=== PATIENT | male | born 1955 | race Caucasian/White ===

== ENCOUNTER 2022-07-25 08:33 | Outpatient (CLI) | payer BC, SELFPAY ==
[2022-07-25 15:12] LABS: Chloride* 101 mmol/L (96-114); Potassium* 4.2 mmol/L (3.6-5.1); Sodium* 139 mmol/L (135-149)
[2022-07-25 15:14] LABS: Cholesterol* 222 mg/dL (90-199); Estimated Glomerular Filt Rate 84 ml/min
[2022-07-25 15:15] LABS: Blood Urea Nitrogen* 15 mg/dL (7-30); Carbon Dioxide* 32 mmol/L (20-32); Glucose* 90 mg/dL (60-115); Triglycerides* 197 mg/dL (40-149)
[2022-07-25 15:16] LABS: Calcium* 9.6 mg/dL (8.4-10.6); HDL Cholesterol* 37 mg/dL (>=40); LDL Cholesterol Calculated 146 mg/dL (<100)
[2022-07-25 15:42] LABS: PSA Screen* 5.67 ng/mL (0.10-4.00)
== END 2022-07-25 08:34 | disposition home or self-care (01) ==
LOC: LKVREF 08:34
PROVIDERS: PCP Family Medicine; Visit Provider Family Medicine
DX: Z00.00 Encounter for general adult medical examination without abnormal findings (principal); Z87.898 Personal history of other specified conditions; Z12.5 Encounter for screening for malignant neoplasm of prostate
CPT/HCPCS: 80048; 80061; 84153

== ENCOUNTER 2022-09-09 11:15 | Outpatient (RCR) | payer BC, SELFPAY | END 2023-01-16 23:59 | disposition home or self-care (01) | PROVIDERS: PCP Family Medicine; Visit Provider Family Medicine | DX: M25.561 Pain in right knee (principal); Z51.89 Encounter for other specified aftercare | CPT/HCPCS: 97110; 97161 ==

== ENCOUNTER 2023-08-19 08:26 | Outpatient (CLI) | payer MEDICARE, SELFPAY | END 2023-08-19 08:27 | disposition home or self-care (01) | LOC: NFLDREF 08-20 11:29 | PROVIDERS: PCP Family Medicine; Referring Provider Family Medicine; Visit Provider Family Medicine | DX: E78.5 Hyperlipidemia, unspecified (principal); R73.01 Impaired fasting glucose; Z12.5 Encounter for screening for malignant neoplasm of prostate; E29.1 Testicular hypofunction | CPT/HCPCS: 80053; 80061; 84403; G0103 ==

== ENCOUNTER 2023-11-18 08:00 | Outpatient (CLI) | payer MEDICARE, SELFPAY | END 2023-11-18 08:01 | disposition home or self-care (01) | LOC: NFLDREF 12-06 21:30 | PROVIDERS: PCP Family Medicine; Referring Provider Family Medicine; Visit Provider Family Medicine | DX: E78.00 Pure hypercholesterolemia, unspecified (principal); E78.5 Hyperlipidemia, unspecified; N40.0 Benign prostatic hyperplasia without lower urinary tract symptoms; R97.20 Elevated prostate specific antigen [PSA] | CPT/HCPCS: 80061; 80076; 84153; 84154 ==

== ENCOUNTER 2024-08-02 12:17 | Outpatient (CLI) | payer MEDICARE, SELFPAY | END 2024-08-02 12:18 | disposition home or self-care (01) | LOC: NFLDREF 08-04 00:50 | PROVIDERS: PCP Family Medicine; Referring Provider Family Medicine; Visit Provider Nurse Practitioner Family | DX: R30.9 Painful micturition, unspecified (principal); N30.90 Cystitis, unspecified without hematuria; R80.9 Proteinuria, unspecified | CPT/HCPCS: 87086 ==

== ENCOUNTER 2024-08-12 11:35 | Outpatient (CLI) | payer MEDICARE, SELFPAY | END 2024-08-12 11:36 | disposition home or self-care (01) | PROVIDERS: PCP Family Medicine; Visit Provider Family Medicine | DX: E78.5 Hyperlipidemia, unspecified (principal); K51.90 Ulcerative colitis, unspecified, without complications; L57.0 Actinic keratosis; E29.1 Testicular hypofunction; N39.0 Urinary tract infection, site not specified; R79.89 Other specified abnormal findings of blood chemistry; N40.0 Benign prostatic hyperplasia without lower urinary tract symptoms; R97.20 Elevated prostate specific antigen [PSA]; R73.01 Impaired fasting glucose; Z12.5 Encounter for screening for malignant neoplasm of prostate | CPT/HCPCS: 80048; 80061; 80076; 84270; 84402; 84403; 87086; G0103 ==

== ENCOUNTER 2024-09-14 10:25 | Outpatient (CLI) | payer MEDICARE, SELFPAY ==
--- NOTE | 2024-09-14 10:45 | CRLHL7_ITS ---
For Patients: As a result of the Century Cures Act, medical imaging exams and procedure reports are released immediately into your electronic medical record. You may view this report before your referring provider. If you have questions, please contact your health care provider. INDICATION: other intraabdominal and pelvic swelling COMPARISON: none TECHNIQUE: Vidal scale imaging was performed of the scrotum. In addition color Doppler and spectral Doppler analysis was performed of the testes. FINDINGS: The testes demonstrate normal arterial and venous blood flow on color Doppler and spectral Doppler analysis. The testes have uniform echogenicity with no evidence of a suspicious mass or area of inflammation. The right testis measures 3.5 x 1.4 x 2.4 cm in size and the left testis measures 4.6 x 1.9 x 2.9 cm. Incidental vessels are present within the right testicle right epididymal head cyst is present measuring 9 x 9 x 11 millimeters. Bilateral varicoceles noted. No hydrocele. IMPRESSION: Bilateral varicoceles and 1.1 cm right epididymal head cyst. Dictated by Eric Alvarado MD @ 09/14/2024 11:57:41 AM (Electronically Signed)
--- NOTE | 2024-09-14 10:45 | CRLHL7_ITS ---
For Patients: As a result of the Century Cures Act, medical imaging exams and procedure reports are released immediately into your electronic medical record. You may view this report before your referring provider. If you have questions, please contact your health care provider. Indication: other intraabdominal and pelvic swelling Technique: Grayscale and color Doppler ultrasound of the left inguinal soft tissues performed. Comparison: None Findings: No fluid collection or mass. No hernia. Left varicocele. Impression: No hernia. Dictated by Eric Alvarado MD @ 09/14/2024 11:58:49 AM (Electronically Signed)
== END 2024-09-14 10:26 | disposition home or self-care (01) ==
LOC: US 10:25
PROVIDERS: PCP Family Medicine; Visit Provider Surgery
DX: R19.09 Other intra-abdominal and pelvic swelling, mass and lump (principal); I86.1 Scrotal varices; L72.0 Epidermal cyst; R10.32 Left lower quadrant pain
CPT/HCPCS: 76857; 76870; 93976

== ENCOUNTER 2024-11-26 08:14 | Outpatient (CLI) | payer MEDICARE, SELFPAY | END 2024-11-26 08:15 | disposition home or self-care (01) | LOC: NFLDREF 12-01 00:24 | PROVIDERS: PCP Family Medicine; Referring Provider Family Medicine; Visit Provider Family Medicine | DX: K51.90 Ulcerative colitis, unspecified, without complications (principal); R97.20 Elevated prostate specific antigen [PSA]; Z90.49 Acquired absence of other specified parts of digestive tract; Z12.5 Encounter for screening for malignant neoplasm of prostate | CPT/HCPCS: 80076; 84153; 84154 ==

== ENCOUNTER 2024-12-31 11:20 | Emergency (ER) | payer MEDICARE, SELFPAY ==
--- OUTSIDE RECORDS SUMMARY | 2024-12-07 08:30 | XMS_ITS | Encounter Summary ---
Author Organization [facility] Address [address] [place] [address]. [place] [address] Care Team Providers Care Leather Production Machine Operator Name Role Phone Jasmyn, [facility] Primary Care Provider + Dave Ortiz MD Unavailable [phone] Reason for Visit * Diagnostic Imaging Ultrasound (Routine) - Pending Review Specialty Diagnoses / Procedures Referred By Carly de la garza Referred To Contact Radiology. Diagnoses Varicose veins of leg with pain, right Procedures US Venous Competency Right US Lower Extremity Venous Duplex Right Dave Ortiz MD [address] [place] [address] Phone: tel: fax: Referral ID Status Reason Start Date Expiration Date V isits Requested Visits Authorized [id number] Pending Review 10/29/2024 10/29/2025 1 1 Encounter Details Date Type Department Care Team (Latest Contact Info) Description 12/07/2024 8:30 AM CDT Ancillary Procedure [facility] [place] [address] [facility] [facility] [address] [place] [id number] Dave Ortiz MD [address] [place], [place] [id number] Varicose veins of leg with pain, right Social History Tobacco Use Types Packs/Day Years Used Date Smoking Tobacco: Never Smokeless Tobacco: Never Alcohol Use Standard Drinks/Week Comments No 0 (1 standard drink = 0.6 oz pur e alcohol) Food Insecurity Answer Date Recorded Within the past 12 months, d id you worry that your food would run out before you got money to buy more? No 08/03/2024 Within the past 12 months, d id the food you bought just not last and you didn t have money to get more? No 08/03/2024 Housing Stability Answer Date Recorded Do you have housing? ([place] is defined as stable permanent housing and does not include staying outside in a car, in a tent, in an abandoned building, in an overnight snf, or couch-surfing.) Yes 08/03/2024 Are you worried about losing your housing? No 08/03/2024 Financial Resource Strain Answer Date R ecorded Within the past 12 months, h ave you or your family members you live with been unable to get utilities (heat, electricity) when it was really needed? No 08/03/2024 Transportation Needs Answer Date Record ed Within the past 12 months, h as lack of transportation kept you from medical appointments, getting your medicines, non-medical meetings or appointments, work, or from getting things that you need? No 08/03/2024 Interpersonal Safety Answer Date Record ed Do you feel physically and e motionally safe where you currently live? Yes 08/04/2024 Within the past 12 months, h ave you been hit, slapped, kicked or otherwise physically hurt by someone? No 08/04/2024 Within the past 12 months, h ave you been humiliated or emotionally abused in other ways by your partner or ex-partner? No 08/04/2024 Sex and Gender Information Value Date Recorded Sex Assigned at Not on file Legal Sex Male 3:38 AM RHIT Gender Identity Not on file Sexual Orientation Not on file documented as of this encounter Plan of Treatment Upcoming Encounters Date Type Department Care Team (Late st Contact Info) Description 01/26/2025 1:00 PM CDT Office Visit [facility] Vein [facility] [address] [place] [phone] Dave Ortiz MD [address] [place] [address] Nurse, Sh Vein 01/28/2025 9:30 AM CDT Ancillary Procedure [facility] [place] [address] [facility] [place] [phone] 01/28/2025 10:00 AM CDT Allied Health/Nurse Visit [facility] [place] [address] [place] [id number] Nurse, Vein documented as of this encounter Procedures Procedure Name Priority Date/Time Associated Diagnosis Comments US VENOUS COMPETENCY RIGHT Routine 12/07/2024 8:45 AM CDT Varicose veins of leg with pain, right documented in this encounter Results * US Venous Competency Right (12/07/2024 8:45 AM CDT) Anatomical Region Laterality Modality Lower Extremity Ultrasound Narrative 12/07/2024 9:16 AM CDT Table formatting from the original result was not included. RIGHT Venous Insufficiency Ultrasound (Date: 12/07/24) RIGHT Lower Extremity Examined by: Lilly Luna RVT Indication: varicose veins with pain BP: 145/77 HR: 60 Technique: Supine and Reverse Trendelenburg Ultrasound of the Deep and Superficial Veins with Valsalva and Compression Augmentation Maneuvers. Duplex Imaging is performed utilizing chamberlain-scale, Two-dimensional images, color-flow imaging, Doppler waveform analysis, and Spectral doppler imaging done with provocative maneuvers. Incompetency Criteria: Deep vein reflux reported when greater than 1.0 sec flow reversal. Superficial vein reflux reported when greater than 0.5 sec flow reversal. Truck Driver Teamster vein reflux reported as greater than 0.5 sec flow reversal. Scan Position for Deep and Superficial Insufficiency Evaluation: Reverse Trendelenburg Right Leg Deep Veins Thrombus Phasic Reflux Time (sec) CFV - + 1.2 Femoral V Prox - + 2.1 Femoral V Mid - + 2.2 Femoral V Dist - + 1.6 Popliteal V - + - PTV'S - Peroneal V'S - Right Leg Superficial Veins AP (mm) Depth (mm) Thrombus Reflux Time (sec) SFJ 7.7 6.7 - - AASV @ SFJ 3.7 8.4 - - GSV Prox Thigh + GSV Mid Thigh + GSV Dist Thigh NV GSV Knee + GSV Prox Calf 2.7 1.9 - - GSV Mid Calf 3.6 3.1 - - GSV Dist Calf 2.7 4.0 - - AP (mm) Depth (mm) Thrombus Reflux Time (sec) GIACOMINI V Dist 2.0 6.2 - - SPJ NV SSV Prox Calf + SSV Mid Calf + SSV Dist Calf + Comments: The SSV is closed proximal calf to insertion site at distal calf. The GSV is closed 32.1 mm from the SFJ to the mid thigh and at the knee (absent distal thigh). The GSV gives rise to multiple incompetent varicose veins, the largest measures 5.8 mm off the proximal calf that courses medial with a reflux time of 2.6 seconds. Medial ankle (area of bleeding varicose veins measures 5.8 mm and varicose veins measure 4.1 mm at the knee). Perforators: There is an incompetent legal summer intern vein ( 6.7 mm) at medial ankle approximately 9 cm from medial malleolus that communicates with varicose veins measuring 5.8 mm that demonstrate 0.9 seconds of reflux that are GSV tributaries. The Left CFV is fully compressible, phasic and responds to augmentation with no evidence of DVT. Impression: RIGHT Deep Vein Findings: Patent deep venous system with no evidence of DVT. Incompetence of the right common femoral, proximal femoral, mid femoral and distal femoral veins. Superficial Vein Findings: RIGHT Great Saphenous Vein: Right great saphenous vein is patent and competent at the saphenofemoral junction. It is not well-visualized due to previous closure procedure. It is not visualized in the thigh and at the level of the knee. It is patent and competent in the calf. It gives rise to multiple incompetent varicose veins, the largest 1 measures 5.8 mm of the proximal calf that courses medially with a reflux time of 2600 ms. Medial ankle (area of bleeding varicose veins.) measures 5.8 mm and varicose veins measured 4.1 mm at the knee.. RIGHT Anterior Accessory Saphenous Vein: Patent Anterior Accessory Saphenous Vein without evidence of reflux. RIGHT Right Posterior Accessory Saphenous Vein: Not seen.. RIGHT Giacomini Vein: Patent Giacomini Vein without evidence of reflux. RIGHT Small Saphenous Vein: Right small saphenous vein is closed in the calf.. RIGHT Perforating and Accessory Veins: There is an incompetent legal summer intern vein (6.7 mm) at medial ankle approximately 9 cm from the medial malleolus that communicates with varicose veins measuring 5.8 mm that demonstrate 900 ms of reflux that are tributaries of the great saphenous vein. The left common femoral vein is fully compressible, phasic and response to augmentation with no sonographic evidence of deep venous thrombosis. Reference: Venous Doppler: (+) = Present (-) = Absent (D) = Decreased (NV) = Not Visualized Reflux: (-) Competent, (NV) = Not Visualized Interpretation criteria: Duration of Retrograde flow (seconds) Category Deep Veins Superficial Veins Truck Driver Teamster veins Competent < 1.0s < 0.5s < 0.5s Incompetent > 1.0s > 0.5s > 0.5s DEEPA CROW M.D., FACS, RPVI us Dave Ortiz MD [facility] [place] Final Res ult documented in this encounter Visit Diagnoses Diagnosis Varicose veins of leg with pain, right documented in this encounter Care Teams Leather Production Machine Operator Relationship Specialty Start Date End Date [facility], [facility] [id number] [place] [id number] PCP - General 05/22/24 Dave Ortiz MD [address] [address] Assigned Heart and Vascular Surgical Provider 09/19/24 documented as of this encounter
--- OUTSIDE RECORDS SUMMARY | 2024-12-07 09:30 | XMS_ITS | Encounter Summary ---
Author Organization [facility] Address [address] [place] [address]. [place] [address] Care Team Providers Care Optoelectronics Engineer Name Role Phone [facility], [facility] Primary Care Provider + Dave Ortiz MD Unavailable Reason for Visit * Reason Comments Surgical Followup Encounter Details Date Type Department Care Team (Late st Contact Info) Description 12/07/2024 9:30 AM CDT Office Visit [facility] [place] [address] [place] [id number] Dave Ortiz MD [address] [place], [place] [address] Surgical follow-up care (Primary Dx); Bleeding from varicose vein; Varicose veins of leg with pain, left Social History Tobacco Use Types Packs/Day Years [...] Answer Date Recorded Do you have housing? 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 Vannessa Harrison, Cashier Clerk - [phone]. Procedure Plan: 1. Left leg VNUS closure GSV 2. Right leg Sclerotherapy (medically necessary) Please call our office regarding the status of your insurance authorization if it has been more than 3 weeks and you have not heard from our social worker health services. Pre-Procedure Instructions: VNUS Closure You are having a VNUS Closure. One or more of your veins will be closed with radiofrequency heating. Insurance Precertification and/or referral authorization may be required by your insurance company. We will call your insurance company to verify benefits for the medically necessary part of your procedure. Your Current Medications and Allergies Are you on blood thinner medications? (Aspirin, Plavix, Coumadin, Eliquis, Xarelto) Please discuss this with your surgeon. Are you sensitive to latex or adhesives used for fake fingernails? Please let us know! Driving Escort and Final Inspector And Tester Please arrange to have a trusted adult (18 years old or older) drive you to and from the clinic. For your safety, we recommend you have a trusted adult to stay with you until the next morning. Your Health If you have a change in your health before the procedure, contact our office immediately. (For example: cold symptoms, cough, urinary tract infection, fever, flu symptoms.) A pre-procedure physical is not required. Note It is sometimes necessary to adjust the procedure schedule due to emergencies. We greatly appreciate your flexibility and understanding in this matter. ____ Check List: The Morning of Your Procedure ___1. Please do not apply anything on your leg(s) or shave the day of your procedure. ___2. You may take your normal medications the day of your procedure. ___3. It is recommended you eat a light breakfast or lunch on the day of your procedure. ___4. Wear comfortable loose-fitting clothing and wide-fitting shoes (i.e. tennis shoes, slip-ons). ___5. Please arrive at our clinic at the specified time given by the nurse. ___6. You will sign an affirmation of informed consent. ___7. Bring your pre-procedure sedation medication (lorazepam and clonidine) with you to the clinic. One hour before your procedure, you will be instructed to take these medications. The lorazepam (Ativan) lowers anxiety and sedates you; the clonidine makes the lorazepam more effective. Everyone's body processes these medications differently. Therefore, reactions to these medications vary. Some people stay awake and some people sleep through the whole procedure. You may not remember everything about the procedure or the day. You do not want to make any big decisions for the rest of the day. The Day of Your Procedure: VNUS Closure In the Exam Room A nurse will bring you back to an exam room with your family member or friend. This is when your informed consent will be signed, and you will take your pre- procedure medications. You will be asked to remove everything from the waist down, including undergarments. You will then put on a hospital gown or shorts and blue booties. Your surgeon will come in to answer any questions and may the appropriate leg(s) with a marker. You will be taken to the restroom to empty your bladder before going into the procedure room. In the Procedure Room You will be escorted to the procedure room. You will lie on a procedure table covered with a sheet or blanket. A nurse will put a blood pressure cuff on your arm and a pulse/oxygen monitor on a finger. Your vital signs will be monitored every 15 minutes. Your gown will be pulled up slightly and the groin exposed for a short period of time. The surgeon's hr assistant will clean your foot, leg, and groin with an antibacterial solution. We will get you covered up as quickly as possible! Sterile towels and blue drapes will be used to cover you and the table. You will be asked to keep your hands under the blue drapes during the procedure. The Procedure The surgeon will visualize your veins with an ultrasound machine. He or she will then numb your skin and access the vein. A catheter is passed up the vein and positioned with ultrasound guidance. Thetable will then be tipped head down. Once the catheter is in the correct position, medication will be injected to numb your leg. You will feel some needle sticks and may feel discomfort as the medication goes in. Once this is done, you should not experience significant discomfort. But if you do, please let us know and more numbing medication can be injected. As the catheter sends out heat, the vein closes off and the catheter is withdrawn. Post-Procedure Once the procedure is done, your leg will be washed with warm water and dried. You will have one ormore small bandages covering your incisions. Your compression hose will be put on or an FLOR wrap from your toes to groin. If the FLOR wrap feels too tight or binds, please elevate your leg and loosen it. You will be offered something to drink and a light snack. You will rest with your leg(s) elevated for approximately 30 minutes. Your friend or family member may join you. For your safety, you will be accompanied to your car by a staff member. Post-Procedure Instructions: VNUS Closure Post-Op Day Zero - The Day of Your Procedure: 1. Medication for Pain Control and Inflammation Control - The numbing medication injected during your procedure will last for several hours. The pre-procedure tablets may make you very sleepy and you might not remember everything from the procedure or from the day. This will usually wear off by the next day. - Ibuprofen: If tolerated, take ibuprofen (e.g., Advil) to reduce inflammation whether or not you have pain. For three days, take two tablets (200mg each) with every meal and at bedtime with a snack. If you are not able to take Ibuprofen, Tylenol is another option. - You may resume taking any medications you were taking before your procedure. 2. Activity You may be up as tolerated when the sedation wears off. Elevate if possible when not walking. 3. Bandages - You will have one or more small bandages covering the incision site(s) where we accessed the vein(s). Keep your bandages on and dry for 48 hours. Compression hose should be worn continuously over the bandages for the first 24 hours. 4. Incisions - Bleeding: You may see some incision sites that are oozing through the bandages. This is not unusual and can be managed with Rest, Ice, Compression and Elevation (TYLER). Apply ice and firm pressure directly to the site that is bleeding and rest with your leg(s) elevated above your heart for 20-30 minutes. Post-Op Day One: 1. Medication - Ibuprofen: Continue the same as the Day of Your Procedure. 2. Activity - Walk as tolerated. Resume your normal daily walking activities. If it hurts, stop. We encourage you to walk. Elevate if possible when not walking. 3. Bandages and Compression - After 24 hours, you may remove your compression hose to take a shower. Please keep your bandage(s) on and intact. You may want to cover your bandage(s) to ensure it remains dry during your shower. Reapply your compression hose after your shower and wear during waking hours only. 4. Driving - You may resume driving when you can do so safely. Post-Op Day Two: 1. Medication - Ibuprofen: Continue the same as the Day of Your Procedure. 2. Activity - Walk as tolerated. Elevate if possible when not walking. 3. Bandages and Compression - You may remove your bandage after 48 hours. Continue wearing your compression hose during waking hours only for a total of seven days following your procedure. 4. Incisions - Your leg(s) may be bruised at or near incision site(s) and possibly have numb spots. This is normal. 5. Call Us If: - You see any areas on your leg that are red and angry in appearance. - You notice any drainage that is milky or cloudy in appearance or that has a foul odor. - You run a temperature of 100.5 or greater. Post-Op Day Three: You will have a follow up appointment 2-4 days post- procedure. At this appointment, you will have an ultrasound and we will check your incisions. The Two Weeks Following Your Procedure 1. Skin Care - Do not use any lotions, creams, or powders on your incision(s) for 14 days or until the incisionshave healed. - Do not soak in a bathtub, hot tub or go swimming for 14 days or until your incisions have healed. 2. Medications - You may use ibuprofen or acetaminophen (e.g., Tylenol) as needed for pain or discomfort. 3. Activity - Do not lift over 25 pounds. After about two weeks you may resume exercise such as aerobics, running, tennis or weightlifting. Use your common sense and ease back into your exercise routine slowly. - You may feel a cord-like tightness along the inside of your leg. Gentle stretching can be helpful. 4. Compression Hose - Your doctor may instruct you to wear compression for longer than seven days; please follow your doctor's instructions. As a comfort measure, you may choose to wear compression for longer than required. 5. Travel - Do not fly in an airplane for 14 days after your procedure. If you have a long car trip planned within two to three weeks following your procedure, stop and walk for a few minutes every two hours. Periodic ankle pumps during the ride may be helpful. Six Week Appointment - At your six-week appointment, you will see your surgeon for an exam and evaluation. This office visit will be scheduled when you return for post-op day three return appointment. Return to Work 1. If you work outside the home, you may return to work in a few days depending on the extent of your procedure, how you tolerate it, and the type of work you perform. 2. Paperwork: If your employer requires paperwork or you would like a letter written to your employer, please let us know. We will complete disability type forms at no charge. Please allow five business days for forms to be completed. Sclerotherapy: Pre-Treatment Instructions Recommended Sessions: ___1___ treatment sessions Time Required per Treatment Session - About 45 minutes Please come in 15 minutes before your scheduled appointment. 30 min. Sclerotherapy treatments last approximately 30 minutes. 5 min. A staff member will wipe your legs off with warm water and dry them with a wash cloth. Then you can put your compression hose on, get dressed and check out. 10 min. After your treatment, you will be asked to walk around for 10 minutes before you get in your car. Medications Five days before your appointment, discontinue aspirin (Bufferin, Anacin, etc.) and Ibuprofen (Motrin, Advil, Aleve, etc.) to reduce bruising. Resume these medications the day following the treatment. Leg Preparation Do not shave your legs or apply any oil, lotion or powder the night before or the day of your treatment. Clothing Shorts: Bring a pair of loose, comfortable shorts to wear during your treatment (or you can choose to wear ours). Shoes: Bring comfortable shoes to accommodate the compression hose after your treatment. Do not wear flip-flops or thong-style sandals unless you have open-toe compression hose. Photographs Photos will be taken before each treatment. This helps monitor your progress. Injections The physician will inject your veins with the sclerotherapy solution chosen to meet your specific needs. Compression Hose Please bring your compression hose if you have them. They may also be reserved for you at our clinic. Compression hose must be worn immediately after each sclerotherapy treatment. The hose must be compression level 20-30, and they must be worn for 24 hours straight after your treatment. If you havenever worn compression hose before, a staff member will teach you how to put them on. You cannot have a treatment without compression hose. They are critical to the success of your treatment! You may purchase your compression hose from us. We will measure you and have the hose available when you come for your treatment. Cancellation and Rescheduling If you need to cancel or reschedule your sclerotherapy treatment, please give our office at least 24 hour notice. Sclerotherapy: Basic Information What is sclerotherapy? Sclerotherapy is a treatment for ???spider?? veins. ???Spider?? veins are small veins just under your skin that can look red, blue or purple. Most ???spider?? veins are only a cosmetic problem. ???Spider?? veins are not useful and treating them will not affect your circulation. How does sclerotherapy work? 1. Injections: A very small needle is used to inject a solution into the ???spider?? veins. The solution irritates the cells that line the vein grover. This causes the veins to collapse. The vein grover to stick together and they can no longer carry blood. Different solutions are used based on the size of the veins. 2. Compression: The spider veins are kept collapsed by wearing compression stockings. Your body will break down and absorb the treated veins. You wear the compression hose for 24 hours after the treatment and then for 4 more days during your waking hours only. How does the body heal after sclerotherapy? The process is similar to how your body heals after a bad bruise. It takes 4-6 weeks or more for the healing to be complete. When the healing is complete, the vein is no longer visible. It may take more than one treatment. How do I get the best results? It is important to follow the post-sclerotherapy instructions. The best results require time and patience. The injection sites will continue to heal and fade for months after a treatment. Please discuss your expectations with your doctor to keep them realistic. Your doctor will do everything possible to meet or exceed your expectations. How many treatments are needed? After your initial exam, your doctor will give you an estimate of the number of treatments that maybe required. It depends upon the size, type, and quantity of your ???spider?? veins and on the doctor's assessment, your history and expectations. You may end up needing fewer or more treatments. How soon can I have another treatment? Additional treatments are scheduled every 4-6 weeks to allow time for the body to respond to the previous treatment. Common Side Effects: Itching The areas that were injected may itch. This is usually mild and lasts less than a day. Do not use lotions or creams on your legs until the injection sites have healed over. Pain It is common to have some tenderness at the injection sites. Injection of the solution can be uncomfortable, but is usually well tolerated by most patients. The tenderness is temporary, lasting 24 hours at most. Tylenol or Ibuprofen can be used, if needed, following the product directions. Bruising This may occur at the injections sites. Bruising may be minimized by avoiding Aspirin and Ibuprofenproducts for five days before each treatment session. Hyperpigmentation A light brown discoloration of the skin may develop along the veins in the areas injected. Approximately 20-30% of patients treated note the discoloration (which is bill checker and less obvious than the veins that are being treated). The hyperpigmentation usually fades in a couple of weeks, but may take several months to a year to totally resolve. There is a 1% chance of hyperpigmentation continuing after one year. Trapped blood A small amount of blood may become trapped and hardened in the veins. This may feel like a knot or cord and it may look dark blue or bruised. This is a common occurrence. You may need to return before your next treatment so this area can be drained to remove the trapped blood. This will reduce the hyperpigmentation that can occur. The chance of this occurring can be decreased with proper use of compression hose after your treatment. Matting Matting is the formation of new, fine ???spider?? veins in the area injected. It occurs in approximately 10% of patients injected. The exact reason for this is unknown. If untreated, the matting usually resolves in 3 to 12 months, but very rarely, it can be permanent. If the matting does not fade,it can be re-injected. Rare Side Effects: Ulceration at injection sites Very rarely, a small ulcer will occur at the site where a vein is injected. An ulcer can take 4 to 6 weeks to completely heal. A small scar may result. Allergic reactions There is a very rare incidence of an allergic reaction to the solution injected. You will be observed for such reaction and will be treated appropriately should it occur. Please inform us of any allergy history. Pulmonary embolus/Deep vein thrombosis This is a blood clot which moves to the lungs/a blood clot in the deep vein system. There is an extraordinarily low incidence of this complication. SCLEROTHERAPY AFTER CARE Immediately: After treatment, walk for 10-15 minutes before getting in your car. If your trip home is more than 1 hour, stop and walk around for 5-10 minutes. Avoid sitting or standing for extended periods. First 24 hours: Wear your compression continuously, even while in bed. After the 24 hours, you may shower if you want to. Put your hose back on, unless you are going to bed. You should NOT wear compression to bed after the first 24 hours. You may fly the next day, but wear your compression. For 5 days: Wear the compression hose for waking hours only. You may continue to wear them longer than 5 days if you prefer. For days 5-7: Walking is encouraged, as it promotes efficient circulation in your veins. You may doactivities that raise your heart rate, but do NOT run, jog, do high impact aerobics, or weight lifting. After 7 days, no activity restrictions. Shaving: Wait a few days to shave or apply lotion. Bathing: Do NOT take hot baths or sit in a hot tub for 7-10 days. For 1 year: Wear SPF 30 sunscreen on your legs when in the sun. This is very important! It helps prevent darkening of the skin at the injection sites. Medications: You may resume your usual medications, including aspirin or ibuprofen. Common Things to Expect Compression must be worn for the first 24 hours and then during the day for 5-7 days. If larger veins are treated with ultrasound-guided sclerotherapy, you will have redness, firmness, tenderness, and swelling. This firmness and tenderness may take 3-6 months to resolve. Ibuprofen andcompression hose will aid in this process. You will have bruising that can last up to 3 weeks. Most fading of the veins will occur between 3 and 6 weeks after treatment. You may notice brown discoloration (hyperpigmentation) at the treatment site. This should fade withtime, but will take 3 months to 1 year to fully heal. Some treated veins may look darker because of trapped blood within the vein. This trapped blood canbe removed at a minimum of 1 month following treatment. Larger veins are more likely to develop trapped blood. It is very important for you to use at least SPF 30 sunscreen in order to help prevent the discoloration of your skin. Migraines rarely occur following sclerotherapy, but are more likely in patients with a history of migraines. Treat as you would any other migraine. documented in this encounter Progress Notes * Vannessa Mulligan RN - 12/07/2024 9:30 AM CDT December 07, 2024 Vein Procedure Recommendation Spoke with patient and patient's in clinic. Dr. Ortiz has recommended patient to have the following vein procedure(s) same day: 1. Left leg VNUS closure GSV 2. Right leg Sclerotherapy (medically necessary) Patient Pre-op Questions: Preferred Pharmacy: [facility] in [place] on [address] Anticoagulant/ASA: No Artificial Joint or Heart Valve: No Open ulcer: No Sedation nausea: No Patient is recommended to wear Thigh High compression hose following his procedure. Discussed compression hose. Pt has a pair of thigh high compression hose from the clinic today. Handed patient written procedure instructions to review on his own (see After Visit Summary). Next steps: Insurance Submission Informed patient this process could take up to 14 business days, but once approved, the patient will be contacted by our social worker health services to schedule the above procedure. Gave patient our social worker health services's information. Informed patient to call our office regarding the status of their insurance authorization if it hasbeen more than 3 weeks and have not heard from our social worker health services. Gave patient our call back number if any further questions or concerns. Vannessa Ballard RN [facility] * Dave Ortiz MD - 12/07/2024 9:30 AM CDT Images from the original note were not included. Apollo Quinones is a 69-year-old gentleman who initially presented to me on 07/20/2024 with history of spontaneous hemorrhage from right medial ankle spider veins and bilateral lower extremity symptomatic varicosities. He is now 6 weeks status post RFA of his right GSV and SSV. At that procedure hisright GSV was extremely superficial from the level of his proximal thigh down to the knee. I removed that portion of the GSV using segmental stab phlebectomy technique. Unfortunately, his insurance carrier would not approve medically necessary sclerotherapy of hemorrhagic right medial ankle spider veins until he had undergone radiofrequency ablation of his major right leg axial veins. He returns at this time for 6-week follow-up. He continues to do well but still has prominent spider veins at his right medial malleolus with several areas of thin overlying skin potentially placing him at risk for future recurrent hemorrhage. Additionally, he still needs to have radiofrequency ablation of hisleft greater saphenous vein which is also a rather superficial structure. Exam: Thin male alert and oriented x 3. His right lower extremity looks quite good with hyperpigmented but well-healed phlebectomy sites along the medial mid and distal right thigh. Prominent spider veins along the right medial malleolus with a few areas of hyperpigmentation. IMPRESSION: 1. 6 weeks status post RFA of the right greater saphenous and right small saphenous veins clinically doing well from that standpoint. 2. Prominent right medial malleolar spider veins with prior history of spontaneous hemorrhage. He still has a few areas within overlying skin at risk for future hemorrhage. 3. 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 RECOMMENDATION: I have reviewed all the above with Paulo and his . I do believe he would benefit from medicallynecessary direct vision sclerotherapy of the right medial malleolar spider veins. This procedure could be performed in conjunction with radiofrequency ablation of the left greater saphenous vein. I have thoroughly discussed the specifics of the above-noted procedures including potential complications and the anticipated postprocedural course. They verbalized full understanding to the above and a desire to proceed. Hopefully we can now obtain insurance approval for medically necessary right medial malleolar spider veins given the prior history of hemorrhage. Fercho Ortiz MD documented in this encounter Plan of Treatment Upcoming Encounters Date Type Department Care Team (Late st Contact Info) Description 01/26/2025 1:00 PM CDT Office Visit [facility] [place] [address] [place] [address] Dave Ortiz MD [address] [place] [address] Nurse, Kyra Vein 01/28/2025 9:30 AM CDT Ancillary Procedure [facility] [place] [address] [facility] [address] [place] [phone] 01/28/2025 10:00 AM CDT Allied Health/Nurse Visit [facility]in [facility] [address] [facility], [address] [place] [phone] NurseKyra Vein documented as of this encounter Visit Diagnoses Diagnosis Surgical follow-up care- Primary Follow-up examination, following unspecified surgery Bleeding from varicose vein Varicose veins of lower extremities with other complications Varicose veins of leg with pain, left documented in this encounter Care Teams Optoelectronics Engineer Relationship Specialty Start Date End Date [facility], [facility] [address] [place] [address] PCP - General 05/22/24 Dave Ortiz MD [address] [place] [address] Assigned Heart and Vascular Surgical Provider 09/19/24 documented as of this encounter
--- OUTSIDE RECORDS SUMMARY | 2024-12-31 11:22 | XMS_ITS | Encounter Summary ---
Author Organization [place] Address [facility] [place] [address] Care Team Providers Care Truck Repair Supervisor Name Role Phone [facility], [facility] Primary Care Provider + Dave Ortiz MD Unavailable [phone] Encounter Details Date Type Department Care Team (Late st Contact Info) Description 12/21/2024 [facility] [place] [address] [place] [phone] Dave Ortiz MD [address] [place], [place] [id number] Social History Tobacco Use Types Packs/Day Years [...] Answer Date Recorded Do you have housing? 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 Gender Identity Not on file Sexual Orientation Not on file documented as of this encounter Plan of Treatment Upcoming Encounters Date Type Department Care Team (Late st Contact Info) Description 01/26/2025 1:00 PM CDT Office Visit [facility] Vein [place] [address] [place] [address] [place] [phone] Dave Ortiz MD [address] [place] [address] [place] [address] NurseKyra Vein 01/28/2025 9:30 AM CDT Ancillary Procedure [facility] [address] [facility] [place] [phone] 01/28/2025 10:00 AM CDT Allied Health/Nurse Visit [facility] [place] [address] [place] [address] [place] [phone] NurseKyra Vein documented as of this encounter Visit Diagnoses Diagnosis Varicose veins of bilateral lower extremities with other complications- Primary documented in this encounter Care Teams Truck Repair Supervisor Relationship Specialty Start Date End Date [facility], [facility] [address] [place] [phone] PCP - General 05/22/24 Dave Ortiz MD [address] [address] Assigned Heart and Vascular Surgical Provider 09/19/24 documented as of this encounter
--- OUTSIDE RECORDS SUMMARY | 2024-12-31 11:22 | XMS_ITS | Encounter Summary ---
Author Organization [place] Address [facility] 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 Gender Identity Not on file Sexual Orientation Not on file documented as of this encounter Plan of Treatment Upcoming Encounters Date Type Department Care Team (Late st Contact Info) Description 01/26/2025 1:00 PM CDT Office Visit [facility] Vein [place] [address] [place], [place] [address] [place] [phone] Dave Ortiz MD [address] [place] [address] [place] [address] Nurse, Vein 01/28/2025 9:30 AM CDT Ancillary Procedure [facility] [place] [address] [place] [phone] 01/28/2025 10:00 AM CDT Allied Health/Nurse Visit [facility] Vein [place] [address] [place] [phone] Nurse, Vein documented as of this encounter Visit Diagnoses Not on filedocumented in this encounter Care Teams Foam Machine Operator Relationship Specialty Start Date End Date [facility], [facility] [address] [place] [phone] PCP - General 05/22/24 Dave Otriz MD [address] [facility] [address] [place] [address] Assigned Heart and Vascular Surgical Provider 09/19/24 documented as of this encounter
--- OUTSIDE RECORDS SUMMARY | 2024-12-31 11:22 | XMS_ITS | Encounter Summary ---
Author Organization [place] Address [address] [place] [address]. [place] [address] Care Team Providers Care Shake Cutter Name Role Phone Clinic, [facility] Primary Care Provider + Dave Ortiz MD Unavailable [phone] Reason for Referral * Diagnostic Imaging Ultrasound (Routine) - Pending Review Specialty Diagnoses / Procedures Referred By Carly de la garza Referred To Contact Radiology. Diagnoses Varicose veins of bilateral lower extremities with other complications Procedures US Lower Extremity Venous Duplex Left Dave Ortiz MD [address] [place] [address] Phone: tel: fax: Referral ID Status Reason Start Date Expiration Date V isits Requested Visits Authorized [id number] Pending Review 12/10/2024 12/10/2025 1 1 Encounter Details Date Type Department Care Team (Late st Contact Info) Description 12/10/2024 Orders Only [facility] [place] [address] [place], [place] [phone] Dave Ortiz MD [address] [place] [address] Varicose veins of bilateral lower extremities with other complications (Primary Dx) Social History Tobacco Use Types Packs/Day Years [...] in an abandoned building, in an overnight senior care, or couch-surfing.) Yes 08/03/2024 Are you worried [...] on file 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 Gender Identity Not on file Sexual Orientation Not on file documented as of this encounter Plan of Treatment Upcoming Encounters Date Type Department Care Team (Late st Contact Info) Description 01/26/2025 1:00 PM CDT Office Visit [facility] [place] [address] [place] [phone] Dave Ortiz MD [address] [place] [address] Nurse, Kyra Vein 01/28/2025 9:30 AM CDT Ancillary Procedure [facility] Vein [facility] [address] [place] [address] [address] [place] [phone] 01/28/2025 10:00 AM CDT Allied Health/Nurse Visit [facility] Vein [facility] [address] [place] [address] [address] [place] [phone] Nurse, Vein Scheduled Orders Name Type Priority Associated Diagnoses Orde r Schedule US Lower Extremity Venous Duplex Left Imaging Routine Varicose veins of bilateral lower extremities with other complications Expected: 12/10/2024 (Approximate), Expires: 12/10/2025 documented as of this encounter Visit Diagnoses Diagnosis Varicose veins of bilateral lower extremities with other complications- Primary documented in this encounter Care Teams Shake Cutter Relationship Specialty Start Date End Date [facility], [address] [address] PCP - General 05/22/24 Dave Ortiz MD [address] [place] [address] [place] [address] Assigned Heart and Vascular Surgical Provider 09/19/24 documented as of this encounter
--- OUTSIDE RECORDS SUMMARY | 2024-12-31 11:22 | XMS_ITS | Encounter Summary ---
Author Organization [place] Address [facility] [address] Care Team Providers Care Sales Recruitment Specialist Name Role Phone [facility], [facility] Primary Care Provider + Dave Ortiz MD Unavailable [phone] Reason for Visit * Reason Onset Date Comments Preop call 12/21/2024 Encounter Details Date Type Department Care Team (Late st Contact Info) Description 12/21/2024 Telephone [facility] [address] [place] [phone] Dave Ortiz MD [address] [place], [place] [address] Preop call Social History Tobacco Use Types Packs/Day Years [...] in an abandoned building, in an overnight detention, or couch-surfing.) Yes 08/03/2024 Are you worried [...] on file 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 12/21/2024 Vein Clinic Preoperative Nurse Call Procedure: Left leg VNUS closure GSV(med nec), Right leg sclero(med nec) 06/30 session exp. 06/29/25 Date: 12/29/24 Surgeon: Dr. Ortiz Time: 929 Check in time: 829 Called patient and left a detailed message. Informed patient: when to check in (0830) to sign consent, to bring their preop medications in their original bottle with them (2mg ativan, 0.1mg clonidine). Patient will take the medications after signing the consent to the procedure. Instructed patient to wear loose-fitting comfortable clothing, and bring their compression hose. Ensured patient has a construction driver/someone that will be responsible for them the rest of the day. Once procedure is completed, we will keep patient in recovery for 30-45 mins, and call construction driver with aftercare instructions. Informed patient, that if possible, they should sit in the backseat to elevate their leg on the ride home. Pt needs Thigh High compression hose for procedure. Status of the hose: patient has thigh high compression hose and was instructed to bring them on DOS. Patient understands if they have any of the following symptoms (fever, cough, shortness of breath, rash), they need to notify us immediately as they may need to cancel their procedure and reschedule for a later date. Gave patient our call back number if any further questions or concerns. Zuleima Chester RN [facility] Vein [facility] documented in this encounter Plan of Treatment Upcoming Encounters Date Type Department Care Team (Late st Contact Info) Description 01/26/2025 1:00 PM CDT Office Visit [facility] Vein [place] [address] [place] [address] [place] [phone] Dave Ortiz MD [address] [facility] [address] [place] [address] Nurse, Vein 01/28/2025 9:30 AM CDT Ancillary Procedure [facility] Vein [address] [facility] [place] [phone] 01/28/2025 10:00 AM CDT Allied Health/Nurse Visit [facility] Vein [address] [place] [address] [place] [phone] Nurse, Vein documented as of this encounter Visit Diagnoses Not on filedocumented in this encounter Care Teams Sales Recruitment Specialist Relationship Specialty Start Date End Date Clinic, [facility] [address] [place] [address] PCP - General 05/22/24 Dave Ortiz MD [address] [place] [address] Assigned Heart and Vascular Surgical Provider 09/19/24 documented as of this encounter
--- OUTSIDE RECORDS SUMMARY | 2024-12-31 11:23 | XMS_ITS | Encounter Summary ---
Author Organization [place] Address [address] [place] [address]. 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 Gender Identity Not on file Sexual Orientation Not on file documented as of this encounter Plan of Treatment Upcoming Encounters Date Type Department Care Team (Late st Contact Info) Description 01/26/2025 1:00 PM CDT Office Visit [facility] Vein [place] [address] [place] [address] [place] [phone] Dave Ortiz MD [address] [place] [address] Nurse, Vein 01/28/2025 9:30 AM CDT Ancillary Procedure [facility] Vein [address] [place] [phone] 01/28/2025 10:00 AM CDT Allied Health/Nurse Visit [facility] Vein [place] [address] [place] [address] [place] [phone] Nurse, Vein documented as of this encounter Visit Diagnoses Not on filedocumented in this encounter Care Teams Pediatric Medical Assistant Relationship Specialty Start Date End Date [facility], [facility] [place] [place] [address] [place] [address] PCP - General 05/22/24 Dave Ortiz MD [address] [place] [address] Assigned Heart and Vascular Surgical Provider 09/19/24 documented as of this encounter
--- OUTSIDE RECORDS SUMMARY | 2024-12-31 11:23 | XMS_ITS | Patient Health Record ---
Author Organization [facility] Address [address] [place] [address] Care Team Providers Care Materials Handling Equipment Operator Name Role Phone Robin Varela Primary Care Provider BENIGNO Ghosh [phone] Reason For Referral No Information Medications Medication SIG (Take, Route, Frequency, Duration) Notes Start Date End Date Status Omeprazole 40 MG Capsule Delayed Release 1 capsule Orally Once a day; Duration: 90 days 07/29/2014 Active Flonase 50 MCG/DOSE Inhaler 1 spray in each nostril Nasally Once a day Active Patanase 0.6 % Solution 2 sprays in each nostril Nasally Twice a day Active Social History Tobacco Use: Social History Observation Description Date Details (start date - stop date) Never Smoker NA - NA Social History Tobacco Use: Social Info Question Answer Notes Tobacco use/smoking Are you a nonsmoker Problems Problem Type SNOMED Code ICD Code Onset Dates Problem Status W/U Status Risk Notes Problem Deviated nasal septum (263691982) Deviated septum (470) Active confirmed Problem Chronic cough (99657065) Chronic cough (786.2) Active confirmed Problem Laryngopharyngeal reflux (979266688) Laryngopharyngeal reflux (LPR) (478.79) Active confirmed Problem Throat pain (262514475) Throat pain (784.1) Active confirmed Problem Gastroesophageal reflux disease (340119291) Reflux (530.81) Active confirmed Plan Of Treatment No Information Insurance Providers Payer Name Payer Address Payer Phone Subscriber Number Group Number Insured Name Patient Relationship to Insured Coverage Start Date Coverage End Date [id number] BLUE [employer]US [employer]( DO NOT USE) [address] [address] [place], [place] [id number] Apollo Quinones Self - patient is the insured Medical (General) History Medical History History ICD Code ulcerative colitis Surgical History Surgery Date(Month/Year) hernia 01/2012
--- OUTSIDE RECORDS SUMMARY | 2024-12-31 11:23 | XMS_ITS | Clinical Summary ---
Author Organization [facility] Address [address] [place] [address]. [place] [address] Care Team Providers Care Belting Cutter Name Role Phone [facility], [facility] Primary Care Provider + Dave Ortiz MD Unavailable [phone] Allergies No known active allergies Medications folic acid (FOLVITE) 400 MCG tablet Take 400 mcg by mouth daily Active multivitamin w/minerals (THERA-VIT-M) tablet Take 1 tablet by mouth daily. Active Vitamin D3 (CHOLECALCIFEROL) 25 mcg (1000 units) tablet Take 25 mcg by mouth daily. Active mesalamine (LIALDA) 1.[address] tablet Take 2,400 mg by mouth 2 times daily. Active rosuvastatin (CRESTOR) 5 MG tablet Take 5 mg by mouth every evening. Active tadalafil (CIALIS) 5 MG tablet Take 5 mg by mouth daily. Active omeprazole (PRILOSEC) [address] capsule Take 20 mg by mouth daily. 4 Active acetaminophen (TYLENOL) 325 MG tabletIndications :Acute cholecystitis Take 1 tablet (325 mg) by mouth every 6 hours as needed for mild pain. 5 Active senna-docusate (SENOKOT-S/JULISSA LACE) 8.6-50 MG tabletIndications :Acute cholecystitis Take 1 tablet by mouth 2 times daily as needed for constipation. 30 tablet 5 Active Additional Information Patient not taking.Reported on 12/07/2024 polyethylene glycol (MIRALAX) 17 GM/Dose powderIndications :Acute cholecystitis Take 17 g by mouth daily as needed for constipation. Active Additional Information Patient not taking.Reported on 12/07/2024 LORazepam (ATIVAN) 1 MG tabletIndications :Varicose veins of bilateral lower extremities with other complications Bring to clinic in original bottle one hour prior to procedure where you will be instructed to take 2 tablets (2mg). 2 tablet Active Additional Information Patient not taking.Reported on 12/07/2024 cloNIDine (CATAPRES) 0.1 MG tabletIndications :Varicose veins of bilateral lower extremities with other complications Bring to clinic in original bottle one hour prior to procedure where you will be instructed to take 1 tablet (0.1mg). 1 tablet Active Additional Information Patient not taking.Reported on 12/07/2024 LORazepam (ATIVAN) 1 MG tabletIndications :Varicose veins of bilateral lower extremities with other complications Bring to clinic in original bottle one hour prior to procedure where you will be instructed to take 2 tablet(s)(2mg). 2 tablet Active cloNIDine (CATAPRES) 0.1 MG tabletIndications :Varicose veins of bilateral lower extremities with other complications Bring to clinic in original bottle one hour prior to procedure where you will be instructed to take 1 tablet (0.1mg). 1 tablet Active Active Problems Problem Noted Date Diagnosed Date Choledocholithiasis 08/04/2024 Acute cholecystitis 08/03/2024 Acute UTI 08/03/2024 Acute gastrointestinal hemorrhage 05/03/2015 GI bleed 05/02/2015 Encounters Date Type Department Care Team Description 12/24/2024 Travel 12/21/2024 Refill [facility] [place] [id number] [place] [phone] Dave Ortiz MD 12/21/2024 Telephone [facility] [address] [place] [phone] Dave Ortiz MD Preop call 12/20/2024 MyC Medical Advice [facility] [address] [place] [phone] Diane Ken 12/10/2024 Orders Only [facility] [place] [address] [facility] [place] [phone] Dave Ortiz MD Varicose veins of bilateral lower extremities with other complications (Primary Dx) 12/07/2024 9:30 AM CDT Office Visit [facility] [place] [address] [facility] [place] [phone] Dave Ortiz MD Surgical follow-up care (Primary Dx); Bleeding from varicose vein; Varicose veins of leg with pain, left 12/07/2024 8:30 AM CDT Ancillary Procedure [facility] [address] [facility] [place] [phone] Dave Ortiz MD Varicose veins of leg with pain, right 12/07/2024 Travel 10/29/2024 1:30 PM CDT Allied Health/Nurse Visit [facility] [place] [address] [facility] [place] [phone] Dave Ortiz MD Nurse, Vein Surgical Followup; Nurse Visit 10/29/2024 1:00 PM CDT Ancillary Procedure [facility] [address] [facility] [place] [phone] Dave Ortiz MD Varicose veins of bilateral lower extremities with other complications 10/28/2024 Travel 10/26/2024 9:00 AM CDT Office Visit [facility] [place] [address] [facility] [place] [phone] Dave Ortiz MD Nurse, Vein Varicose veins of leg with pain, right (Primary Dx); Bleeding from varicose vein; Acute post-operative pain 10/26/2024 Travel 10/21/2024 Travel 10/19/2024 Refill [facility] [place] [address] [place] [phone] Dave Ortiz MD Refill Request 10/19/2024 Telephone [employer] [facility] [address] [place] [phone] Dave Ortiz MD Preop Call from Last 3 Months Immunizations Immunization Administration Dates Next Due Influenza Vaccine >6 months,eden, PF 05/06/2015 Social History Tobacco Use Types Packs/Day Years Used Date Smoking Tobacco: Never Smokeless Tobacco: Never Tobacco Cessation:Counseling Given: Not Answered Alcohol Use Standard Drinks/Week Comments No 0 [...] Date Recorded Do you have housing? 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 Gender Identity Not on file Sexual Orientation Not on file Last Filed Vital Signs Vital Sign Reading Time Taken Comments Blood Pressure 117/69 10/26/2024 10:49 AM CDT Pulse 61 10/26/2024 10:49 AM CDT Temperature 36.4 C (97.6 F) 08/05/2024 11:49 AM UNISHEAR OPERATOR Respiratory Rate 16 08/05/2024 11:49 AM UNISHEAR OPERATOR Oxygen Saturation 94% 10/26/2024 10:49 AM CDT Inhaled Oxygen Concentration - - Weight 79.5 kg (175 lb 4.8 oz) 08/03/2024 11:37 PM UNISHEAR OPERATOR Height 180.3 cm (5' 11) 08/03/2024 11:37 PM UNISHEAR OPERATOR Body Mass Index 24.45 08/03/2024 11:37 PM UNISHEAR OPERATOR Plan of Treatment Upcoming Encounters Date Type Department Care Team (Late st Contact Info) Description 01/26/2025 1:00 PM CDT Office Visit [facility] [place] [address] [place] [phone] Dave Ortiz MD [address] [place] [address] [place] [address] Nurse, Kyra Vein 01/28/2025 9:30 AM CDT Ancillary Procedure [facility] [address] [place] [phone] 01/28/2025 10:00 AM CDT Allied Health/Nurse Visit [facility] [place] [address] [place] [phone] Nurse, Vein Health Maintenance Due Date Last Done Comments ADVANCE CARE PLANNING 1955 ANNUAL REVIEW OF HM ORDERS [address] CT COLONOGRAPHY 1957 FLEX SIG 1957 LIPID 1957 sDNA (Cologuard) 1957 HEPATITIS C SCREENING 1975 ZOSTER VACCINE (1 of 2) 01/08/1976 FIT 05/02/2016 05/02/2015 RSV VACCINE (1 - Risk 60-74 years 1-dose series) 2017 FALL RISK ASSESSMENT 2022 MEDICARE ANNUAL WELLNESS VISIT 2022 PHQ-2 (once per calendar year) 2024 COVID-19 VACCINE (7 - Moderna risk season) 2024 03/15/2024, 04/11/2023, 03/18/2022, Additional history exists INFLUENZA VACCINE (#1) 2025 , 06/05/2023, 04/29/2022, Additional history exists DIABETES SCREENING 08/05/2027 08/05/2024, 0 08/04/2024, 08/03/2024, Additional history exists COLONOSCOPY 12/14/2031 12/13/2021, 10/27/2020 COLORECTAL CANCER SCREENING 12/14/2031 DTAP/TDAP/TD VACCINE (3 - Td or Tdap) 08/27/2032 08/27/2022, 05/08/2010 PNEUMOCOCCAL VACCINE 50+ YEARS Completed 02/05/2023 HPV VACCINE Aged Out No longer eligi ble based on patient's age to complete this topic MENINGITIS VACCINE Aged Out No longer eligible based on patient's age to complete this topic Medical Devices Explanted Type Area Passenger Train Braker Device Identifier Shelf Expiration Date Model / Serial / Lot Catheter- 025 Implanted:10/26 by Dave Ortiz MD (Quantity not on file) Explanted:10/26 by Dave Ortiz MD (Quantity not on file) Catheter [employer] [id number] 02/27/2026 / / [id number] Procedures Procedure Name Priority Date/Time Associated Diagnosis Comments US VENOUS COMPETENCY RIGHT Routine 12/07/2024 8:45 AM CDT Varicose veins of leg with pain, right US LOWER EXTREMITY VENOUS DUPLEX BILATERAL Routine 10/29/2024 12:58 PM CDT Varicose veins of bilateral lower extremities with other complications OR SC ENDOVENOUS ABLAT THERAPY INCOMP VEIN, INCLGUIDANC Routine 10/26/2024 10:35 AM CDT Varicose veins of leg with pain, right Bleeding from varicose vein OR SC ENDOVENOUS ABLAT THERAPY INCOMP VEIN, INCL GUIDANCN Routine 10/26/2024 10:35 AM CDT Varicose veins of leg with pain, right Bleeding from varicose vein COMPREHENSIVE METABOLIC PANEL Routine 08/05/2024 6:26 AM UNISHEAR OPERATOR OCCULT BLOOD STOOL STAT 05/02/2015 10 :07 AM UNISHEAR OPERATOR from Last 3 Months or Most Recently Relevant to Health Maintenance Results * US Venous Competency Right (12/07/2024 [...] when greater than 0.5 sec flow reversal. Leather Dresser vein reflux reported as greater than 0.5 [...] the knee). Perforators: There is an incompetent dispatcher maintenance service vein ( 6.7 mm) at medial ankle [...] and Accessory Veins: There is an incompetent dispatcher maintenance service vein (6.7 mm) at medial ankle approximately [...] flow (seconds) Category Deep Veins Superficial Veins Leather Dresser veins Competent < 1.0s < 0.5s < 0.5s Incompetent > 1.0s > 0.5s > 0.5s DEEPA CROW M.D., FACS, RPVI Dave Ortiz MD [facility] US ORDERABLES Final Res ult * US Lower Extremity Venous Duplex Bilateral (10/29/2024 12:58 PM CDT) Anatomical Region Laterality Modality Vascular, Thigh, Leg Ultrasound Narrative 10/31/2024 10:27 AM CDT Table formatting from the original result was not included. Right Venous Ultrasound Status Post VNUS Closure Date: Date: 10/29/24 Examined by: Prasanna Barrientos RVT Indication: 72 Hour Follow-up Saphenous Vein VNUS Closure Right CFV/SFJ Compression: Fully Compressible Right POP V./SPJ Compression: Fully Compressible Reference: (FC)-Fully Compressible (PC)-Partially Compressible (NC) Non-Compressible Location Right GSV Right SSV Proximal Thigh NC Mid Thigh NC Distal Thigh NV Knee NV NC Proximal Calf FC NC Mid Calf FC NC Distal Calf FC NC Location Right CFV Right Pop V Spontaneous + + Phasic + + Augmentation + + Patent + + Comments: The Right CFV and Popliteal Vein demonstrate phasic flow, compress, and respond to augmentation. No evidence of DVT at this time. The remainder of deep veins including femoral, posterior tibial and peroneal veins are widely patent and fully compressible with no evidence for DVT at this time. The GSV is closed 7.5 mm from the SFJ to the mid thigh with evidence of thrombus seen throughout. The SSV is closed from the posterior knee to the distal calf with evidence of thrombus seen throughout. The SPJ is absent. Impression: 1. Right great saphenous vein is closed 7.5 mm from the saphenofemoral junction to the mid thigh. It is not visualized at the level of the distal thigh and knee. There is thrombus throughout the noncompressible segments in the proximal and mid thigh. This is the expected sonographic finding from the procedure. 2. The right small saphenous vein is closed from the posterior knee to the distal calf with evidence of thrombus throughout. The saphenous popliteal junction is absent. This is the expected sonographic finding from the procedure. 3. No evidence for deep venous thrombosis in the right lower extremity. Reference: Compressibility: FC= Fully compressible, PC= Partially compressible, NC= Non-compressible, NV= Not Visualized Venous Doppler: (+) = Present (-) = Absent (D) = Decreased, (NV) = Not Visualized DEEPA CROW M.D., FACS, RPVI us Dave Ortiz MD [facility] US ORDERABLES Final Res ult * OR SC ENDOVENOUS ABLAT THERAPY INCOMP VEIN, INCL GUIDANCN, OR SC ENDOVENOUS ABLAT THERAPY INCOMP VEIN, INCLGUIDANC (10/26/2024 10:35 AM CDT) Narrative Dave Ortiz MD - 10/26/2024 10:35 AM CDT Dave Ortiz MD 10/26/2024 5:27 PM Annelise Closure Date/Time: 10/26/2024 10:35 AM Performed by: Dave Ortiz MD Authorized by: Dave Ortiz MD Time out: Immediately prior to the procedure a time out was called Preparation: Patient was prepped and draped in usual sterile fashion 1st Assist: Teri Todd CST/CHRISTIAN Paleobotanist: Zuleima Chester RN Procedure: VNUS Procedure side: Right One Vein Second and Subsequent Vein Vein Treated: GSV and SSV Patient tolerance: Patient tolerated the procedure well with no immediate complications Wrap/Hose: Wraps Dave Ortiz MD PROCEDURE/MINOR SURGICAL OR DERABLES Final Result * (ABNORMAL) Comprehensive metabolic panel (08/05/2024 6:26 AM [facility]) Sodium 135 135 - 145 mmol/L 08/05/2024 6:57 AM [facility] Potassium 4.2 3.4 - 5.3 mmol/L 08/05/2024 6:57 AM [facility] Carbon Dioxide (CO2) 23 22 - 29 mmol/L 08/05/2024 6:57 AM [facility] Anion Gap 14 7 - 15 mmol/L 08/05/2024 6:57 AM [facility] Urea Nitrogen 12.3 8.0 - 23.0 mg/dL 08/05/2024 6:57 AM [facility] Creatinine 0.97 0.67 - 1.17 mg/dL 08/05/2024 6:57 AM [facility] GFR Estimate 86 >60 mL/min/1.7 3m2 08/05/2024 6:57 AM [facility] Comment:eGFR calculated usmi 2020 CKD-EPI equation. Calcium 9.3 8.8 - 10.4 mg/dL 08/05/2024 6:57 AM [facility] Chloride 98 98 - 107 mmol/L 08/05/2024 6:57 AM [facility] Glucose 100(H) 70 - 99 mg/dL 08/05/2024 6:57 AM [facility] Alkaline Phosphatase 163(H) 40 - 150 U/L 08/05/2024 6:57 AM [facility] AST 245(H) 0 - 45 U/L 08/05/2024 6:57 AM [facility] ALT 311(H) 0 - 70 U/L 08/05/2024 6:57 AM [facility] Protein Total 6.7 6.4 - 8.3 g/dL 08/05/2024 6:57 AM [facility] Albumin 3.9 3.5 - 5.2 g/dL 08/05/2024 6:57 AM [facility] Bilirubin Total 0.6 <=1.2 mg/dL 08/05/2024 6:57 AM [facility] Blood STRUCTURE OF LEFT UPPER LIMB / Unknown Venipuncture / Unknown 08/05/2024 6:26 AM UNISHEAR OPERATOR 08/05/2024 6:37 AM UNISHEAR OPERATOR us Brittney Iraheta MD LAB - BLOOD ORDERABLES Final Result [facility] [address] (1st floor, no room number) [place] [address], [facility] * (ABNORMAL) Stool: occult blood (05/02/2015 10:07 AM UNISHEAR OPERATOR) Occult Blood Positive(A ) NEG [facility] Stool specimen (specimen) 05/02/2015 10:07 AM UNISHEAR OPERATOR 05/02/2015 10:12 AM UNISHEAR OPERATOR us Vannessa Pulliam MD LAB - STOOLS ORDERABLES Final Result Performing Organization Address City/[facility]/ZIP Co de Phone Number [facility] [address] [place], [place] [address] [phone] from Last 3 Months or Most Recently Relevant to Health Maintenance Insurance [facility] MEDICARE ADVANTAGE [facility] MEDICARE ADVANTAGE Advance Directives For more information, please contact: [phone] * Full Code (Latest Code Status on File) Date Activated Date Inactivated Comments 08/03/2024 4:54 PM 08/05/2024 3:38 PM All basic and advanced life-sustaining interventions are performed as appropriate Question Answer Comments Code status determined by: Discussion with patie nt/ legal decision maker * Full Code Date Activated Date Inactivated Comments 05/03/2015 2:52 PM 05/06/2015 3:02 PM * Full Code Date Activated Date Inactivated Comments 05/02/2015 2:49 PM 05/03/2015 2:52 PM Care Teams Belting Cutter Relationship Specialty Start Date End Date [facility] [address] [place] [phone] PCP - General 05/22/24 Dave Ortiz MD [address] [place] [address] [place] [address] Assigned Heart and Vascular Surgical Provider 09/19/24
--- OUTSIDE RECORDS SUMMARY | 2024-12-31 11:23 | XMS_ITS | Encounter Summary ---
Author Organization [place] Address [facility] [place] [address] Care Team Providers Care Junior Buyer Name Role Phone [facility], [facility] Primary Care Provider + Dave Ortiz MD Unavailable [phone] Reason for Visit * Reason Onset Date Comments Preop Call 10/19/2024 Encounter Details Date Type Department Care Team (Late st Contact Info) Description 10/19/[address] 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 Reviewed over all procedure information. Pt in agreement with plan and had no further questions. Beth Montes De Oca RN [facility] * Telephone Encounter - Vannessa Mulligan RN - 10/19/2024 9:25 AM CDT Images from the original note were not included. 10/19/2024 Vein Clinic Preoperative Nurse Call Procedure: Braydon. leg VNUS Closure GSV(med nec), Right leg VNUS closure SSV(med nec) Date: Friday10/26/24 Surgeon: Dr. Ortiz Time: 0900 Check in time: 0800 Called patient and left a detailed message. Informed patient: when to check in (0800) to sign consent, to bring their preop medications in their original bottle with them (2mg ativan, 0.1mg clonidine). Patient will take the medications after signing the consent to the procedure. Instructed patient to wear loose-fitting comfortable clothing, and bring their compression hose. Ensured patient has a services delivery driver/someone that will be responsible for them the rest of the day. Once procedure is completed, we will keep patient in recovery for 30-45 mins, and call services delivery driver with aftercare instructions. Informed patient, that if possible, they should sit in the backseat to elevate their leg on the ride home. Pt needs Thigh High compression hose for procedure. Status of the hose: patient has thigh high hoseand will bring them to the appointment. Patient understands if they have any of the following symptoms (fever, cough, shortness of breath, rash), they need to notify us immediately as they may need to cancel their procedure and reschedule for a later date. Gave patient our call back number if any further questions or concerns. Vannessa Mulligan RN [facility] documented in this encounter Plan of Treatment Upcoming Encounters Date Type Department Care Team (Late st Contact Info) Description 01/26/2025 1:00 PM CDT Office Visit [facility] [place] [address] [address] [phone] Dave Ortiz MD [address] [place] [address] NurseKyra Vein 01/28/2025 9:30 AM CDT Ancillary Procedure [facility] [address] [place] [phone] 01/28/2025 10:00 AM CDT Allied Health/Nurse Visit [facility] [place] [address] [address] [phone] NurseKyra Vein documented as of this encounter Visit Diagnoses Not on filedocumented in this encounter Care Teams Junior Buyer Relationship Specialty Start Date End Date [facility], [facility] [address] [place] [address] PCP - General 05/22/24 Dave Ortiz MD [address] [place] [address] Assigned Heart and Vascular Surgical Provider 09/19/24 documented as of this encounter
--- OUTSIDE RECORDS SUMMARY | 2024-12-31 11:23 | XMS_ITS | Continuity of Care Document ---
Author Organization [facility] Address [address] [place] [address] Care Team Providers Care Electroplater Automatic Name Role Phone YUNI PRAMOD Primary Care Provider Assessment Encounter Date Assessment Date Assessment LastModified by Organization Details LastModified Time 12/06/2024 12/06/2024 I had the pleasure meeting with the patient who is here for elevated PSA. Most recent value 8.9. He has no family history of prostate cancer. We discussed that PSA is a good but imperfect test. PSA stands for prostate specific antigen. This is not a specific marker of cancer but rather the prostate as a whole. There are a lot of things that can cause elevations in PSA (infection, inflammation, recent procedure, recent trauma to the perineum, recent sexual intercourse, etc.). Downward trends can be reassuring but variability in PSA is common as well. We discussed following trends in the PSA rather than absolute value when deciding if there is anything concerning. Over time, PSA tends to increase with age (approximately 3.2% per year or 0.04 ng/ml per year). Furthermore, we have age specific data regarding PSA values. The recommended reference range for serum PSA (95th percentile) for men aged 40 to 49 years is 0.0 to 2.5 ng/ml; for 50 to 59 years, 0.0 to 3.5 ng/ml; 60 to 69 years, 0.0 to 4.5 ng/ml; and 70 to 79 years, 0.0 to 6.5 ng/ml. At this point we discussed 3 options including recheck in 3 months, MRI of the prostate, and transrectal ultrasound-guide d systematic biopsy of the prostate. We discussed the risks, benefits, alternatives of these approaches. At this point, the patient would like to proceed with MRI given the possible ability to avoid unnecessary biopsy based on results. We discussed that MRls have a 85% sensitivity. Recent studies suggest that the 10-15% of men with negative MRls likely have low risk or clinically indolent prostate cancer. Regardless of the outcome, he would need a PSA recheck in 6 months. We will order the MRI and have a return visit to clinic to review the results. Patient voices understanding with the plan. [email or web address] Not available 12/14/2024 08:50:31 Plan of Treatment Reminders Order Date Submit Date Provider Last Modified By Organization Details Last Modified Time Details Appointments None record ed. Lab None record ed. Referral None record ed. Procedures None record ed. Surgeries None record ed. Imaging None record ed. Medication Orders None record ed. Patient TargetsNo targets recorded. Patient InstructionsNo instructions recorded. Reason for Referral None Reported. Results Created Date Observation Date Name Description Value Unit Range Abnormal Flag Note LastModifiedBy Organization Detail LastModifiedTime 12/23/19 25 12/21/2024 MRI, prost ate, w/wo contr ast EXAM: MR PELVIS PROSTA TE wwo CONTRA ST [facility]ATI [facility]: [facility] [place] DATE: 025 INDICA TION: Elevat ed prosta te specif ic antige n [PSA]. Prior benign prosta te biopsy in 2021. COMPAR ANDRIY: 2020 PSA: No recent PSA levels availa ble at the time of MRI interp retati on. TECHNI QUE: Examin ation was perfor med with high-r esolut ion T1 axial, T2 axial, T2 FSE sagitt al and T2 FSE pike l images obtain ed throug h the prosta te gland and semina l vesicl es. Diffus ion images were obtain ed in the axial plane. Contra st was inject ed with dynami c enhanc ed images of the prosta te gland in the axial plane. Images were analyz ed using a separa te workst ation with CAD and 3D post proces sing for prosta te volume contou ring and segmen tation . CONTRA ST: 7.[address] Discar ded: [address] FINDIN GS: The image qualit y is satisf actory . PROSTA TE: Volume 57 mL. PERIPH ERAL ZONE: Mild wedge shaped T2 and ADC hypoin tensit ies, likely sequel ae of prosta titis (PI-RA DS 2). No suspic ious lesion s. 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 TRANSI TIONAL ZONE: Nodula rity consis tent with benign prosta tic hyperp lasia (PI-RA DS 2). No suspic ious lesion s. LOCAL STAGIN G: Semina l Vesicl es: Unrema rkable . Extrac apsula r Extens ion: Not applic able. Neurov ascula r Bundle Invasi on: Not applic able. Other Organ Invasi on: Not applic able. BLADDE R: Unrema rkable . LYMPH NODES: No pelvic or retrop eriton eal lympha denopa thy. BONES: No aggres sive osseou s lesion s. Degene rative change s at L5-S1. IMPRES AIDEE: 1. No suspic ious lesion s in the prosta te gland. OVERAL L ASSESS MENT: PI-RAD S 2-Low (clini venkat signif icant cancer is unlike ly to be presen t). 2. Change s of BPH with prosta te volume of 57 mL. This report was electr onical ly interp reted by: DR. BAILEY ALFARO M.D. [email or web address] [facility] [address] [facility] [address], [place], [address], 12/23/2024 08:42:20 Result Notes None recorded. Problems Name Problem SNOMED Code Status Onset Date Resolution Date Notes Provider Name and Address Organization Details Recorded Time Prostate specific antigen above reference range [id number] Active 025 LUMA JESSICA MD [address] [facility] [address], [place], [address] , [facility] 08:50:35 Problem Notes None recorded. Procedures Surgical History Date Name Laterality Status Provider Name and Address Organization Details Recorded Time 08/04/19 25 cholecystectomy completed Senia [facility] 12/06/2024 11:52:36 07/09/19 22 Prostate Biopsy Procedure completed Caitlyn Romero MD [address] [facility],[address], [place], [address], [facility] 07/09/2021 12:15:54 07/09/19 22 URONAV completed Sheldon Caldwell [facility] 07/09/2021 10:54:30 07/09/19 22 Gentamicin Injection completed Karlie Reinoso [facility] 07/09/2021 10:49:06 05/29/20 21 Blood Draw/FRUIT PICKER MACHINE OPERATOR/PSA RESULTS completed Shayna Terry [facility] 05/29/2021 14:08:40 10/28/19 21 Diagnostic colonoscopy completed Not Available Health Note 05/27/2021 14:22:52 Hernia repair w/mesh completed Not Available Health Note 05/27/2021 14:22:52 Imaging Results None recorded. Procedure Notes None recorded. Medical Equipment None Reported. Allergies No known drug allergies Medications Name Sig Start Date Stop Date Status Note LastModified by Organization Details LastModified Time cyclobenzap rine 10 mg tablet TAKE ONE TABLET BY MOUTH THREE TIMES DAILY NEEDED 12/03 completed Not Available Not Available Not Available clonidine HCl 0.1 mg tablet Bring to clinic in original bottle one hour prior to procedure where you will be instructe d to take 1 tablet (0.1mg).* 12/06 completed Not Available Not Available Not Available prednisone 10 mg tablet take 4 tablets by mouth for 1 week, then 3 tablets for 1 week, then 2 tablets for 1 week, then 1.5 tablets for 1 week, then 1 tablet for 1 w 12/03 completed Not Available Not Available Not Available prednisone 20 mg tablet TAKE 1 TABLET BY MOUTH TWICE DAILY 12/03 completed Not Available Not Available Not Available fluorouraci l 5 % topical cream APPLY TOPICALLY TO AFFECTED AREA(S) ONCE WEEKLY 12/03 completed Not Available Not Available Not Available cephalexin 500 mg capsule TAKE 1 CAPSULE BY MOUTH TWICE DAILY FOR 7 DAYS* 12/03 completed Not Available Not Available Not Available omeprazole 20 mg capsule,del ayed release TAKE ONE CAPSULE BY MOUTH ONCE DAILY BEFORE A MEAL* active Not Available Not Available No t Available lorazepam 1 mg tablet Bring to clinic in original bottle one hour prior to procedure where you will be instructe d to take 2 tablets (2mg).* 12/06 completed Not Available Not Available Not Available levofloxaci n 500 mg tablet TAKE 1 TABLET BY MOUTH ONCE 12/03 completed Not Available Not Available Not Available gentamicin 40 mg/mL injection solution Take 160 mg by injection route. 12/03 completed Not Available Not Available Not Available rosuvastati n 5 mg tablet TAKE 1 TABLET BY MOUTH DAILY* active Not Available Not Available No t Available tadalafil 5 mg tablet TAKE 1 TABLET BY MOUTH DAILY* active Not Available Not Available No t Available sildenafil (pulmonary hypertensio n) 20 mg tablet TAKE 1-2 TABLETS BY MOUTH NEEDED* 12/03 completed Not Available Not Available Not Available mesalamine 1.2 GM tablet 4/day 12/03 completed Not Available Not Available Not Available mesalamine 1.2 gram tablet,fernando yed release TAKE FOUR TABLETS BY MOUTH DAILY* active Not Available Not Available No t Available Vitals Date Recorded Body height Body mass index (BMI) Body weight Provider Name and Address Organization Details Last Updated DateTime 12/06/2024 180.34 cm 23.7 kg/m2 47901.7 g Senia Boone [place] [facility] 12/06/2024 11:50:24 Social History Question Answer Notes LastModified by Organizat ion Details LastModified Time Tobacco Smoking Status Never Smoker Not Available Health Note 05/27/2021 14:22:53 Do You Have An Advance Directive? No [email or web address] Information not available 12/06/2024 What Is Your Level Of Caffeine Consumption? Moderate [email or web address] Information not available 05/27/2021 How Much Tobacco Do You Chew? None [email or web address] Information not available 05/27/2021 Recreational Drug Use No [email or web address] Information not available 05/27/2021 Do You Have A Medical Power Of Dental Hygiene Professor? No [email or web address] Information not available 12/06/2024 What Was The Date Of Your Most Recent Tobacco Screening? 12/06/2024 [email or web address] Information not available 12/06/2024 What Is Your Relationship Status? [email or web address] Information not available 05/27/2021 Has Tobacco Cessation Counseling Been Provided? No Information not available 12/06/2024 Sex: Male Functional Status Question Answer Note LastModified by Organizat ion Details LastModified Time Do you use any illicit or recreational drugs? No [email or web address] Information not available 12/06/2024 Do you or have you ever used any other forms of tobacco or nicotine? No [email or web address] Information not available 12/06/2024 What is your level of alcohol consumption? None [email or web address] Information not available 05/29/2021 Do you or have you ever used smokeless tobacco? Never used smokeless tobacco [email or web address] Information not available 05/27/2021 Do you or have you ever used e-cigarettes or vape? Never used electronic cigarettes [email or web address] Information not available 05/27/2021 Mental Status None recorded. Family History Relationship Description Onset Age of this Age Resolved Age Notes LastModified by Organization Details LastModified Time Father Family history of cancer of colon [email or web address] Not available 2020 14:22:51 Medical History Condition Response Other Y High Blood Pressure N Kidney Stones N Depression N Lung Disease N GERD/Acid Reflux Y Sexually Transmitted Infection N Cancer N High Cholesterol N Diabetes N Bleeding Disorder N Heart Disease N Immunizations Vaccine Type Date Status Note Provider Nam e and Address Organization Details Recorded Time influenza, unspecified formulation 1 completed Not Available Health Note 05/27/2021 14:22:56 SARS-COV-2 (COVID-19) vaccine, UNSPECIFIED 1 completed Not Available Health Note 05/27/2021 14:22:56 Past Encounters Encounter ID Performer Location Encounter Start Date Encounter Closed Date Diagnosis/Indication Diagnosis SNOMED-CT Code Diagnosis ICD10 Code Diagnosis Note [id number] LUMA JESSICA MD [facility] [address] [place] [address] 12/06/2024 11:46:50 12/15/2024 08:40:26 Prostate specific antigen above reference range 418569774 R97.20 Plan:1. MRI prostate2. Return to review results3. At minimum, six-month PSA recheck with Urology Health Concerns Section Related Observation LastModified by Organization Detai ls LastModified Time None Recorded Concern Status LastModified by Organization Details LastModified Time None Recorded Payers Encounter Date Sequence Insurance Name Policy Number Policy Krishnamurthy Covered Member ID Krishnamurthy Member ID Guarantor Name 12/06/2024 1 [facility]: (MEDICARE REPLACEMENT PPO) [id number] Paulo Quinones [id number] Paulo E Stacie Notes Date Note Type Note Provider Name and Address Organization Details Recorded Time 12/06/2024 text/html Patient is a santo y pleasant 69-year-old gentleman previously seen by Dr. Romero in 2019 for elevated PSA. He underwent a prostate biopsy at that time. Final pathology showed no evidence of prostate cancer. He had a follow-up with his primary care provider recently. PSA was obtained. This shows a value of 8.9 ng/mL. Refer to urology discuss next steps of care. No recent blood in the urine. No urinary tract infections. No obstructive irritative voiding symptoms. LUMA JESSICA MD [address] [place] [address],[address], [place], [address], [facility] 12/14/2024 08:50:50
--- OUTSIDE RECORDS SUMMARY | 2024-12-31 11:23 | XMS_ITS | Clinical Summary ---
Author Organization [facility] Address [address] [place] [address] Care Team Providers Care Warehouse Freight Handler Name Role Phone Monika Trevino Primary Care Provider Allergies No known active allergies Medications folic acid 800 mcg tablet Take 800 mcg by mouth once daily. Active omeprazole (PRILOSEC) 20 mg Delayed-Release capsule Take 1 Capsule by mouth once daily. Active mesalamine (LIALDA) 1.2 gram Delayed-Release tablet Take 2 tablets by mouth twice daily 11/28/2020 Active sildenafiL, pulm.hypertensi on, (REVATIO) 20 mg tablet TAKE 2-5 TABLETS BY MOUTH 30 MINUTES PRIOR TO SEXUAL ACTIVITY. NO MORE THAN 5 TABLETS PER DAY 07/21/2020 Active cholecalciferol (Vitamin D) 1,000 unit capsule Take 1 Capsule (1,000 units) by mouth once daily. 0 12/08/2020 Active Active Problems Problem Noted Date Diagnosed Date Testosterone deficiency 12/06/2020 Male erectile disorder 12/06/2020 Elevated prostate specific antigen (PSA) 021 Atelectasis 12/06/2020 Immunizations Immunization Administration Dates Next Due COVID-19 vaccine (Moderna 100mcg/0.5mL) PF MDKeila 10/13/2020,09/15/2020 Influenza, IIV4 04/01/2020, 9,04/29/2018,2014 Tdap 05/08/2010 Social History Tobacco Use Types Packs/Day Years Used Date Smoking Tobacco: Never Smokeless Tobacco: Never Alcohol Use Standard Drinks/Week Comments Not Asked 0 (1 standard drink = 0.6 oz pur e alcohol) PHQ-2 Answer Date Recorded PHQ-2 TOTAL SCORE 0 12/08/2020 Social Connections Answer Date Recorded Frequency of Communication with Friends and Fami ly Not on file 06/30/2021 Financial Resource Strain Answer Date R ecorded Difficulty of Paying Living Expenses Not on file 06/30/2021 Difficulty of Paying Living Expenses Not on file 06/30/2021 Sex and Gender Information Value Date Recorded Sex Assigned at Not on file 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 Gender Identity Not on file Sexual Orientation Not on file Obstetrics History Last Filed Vital Signs Vital Sign Reading Time Taken Comments Blood Pressure 120/64 12/08/2020 12:21 PM CDT Pulse 72 12/08/2020 12:21 PM CDT Temperature 35.2 C (95.4 F) 05/11/2010 1:59 PM FIBRE OPTIC CABLE SPLICER Respiratory Rate 16 05/11/2010 3:17 PM FIBRE OPTIC CABLE SPLICER Oxygen Saturation 99% 05/11/2010 3:17 PM FIBRE OPTIC CABLE SPLICER Inhaled Oxygen Concentration - - Weight 77.6 kg (171 lb) 12/08/2020 12:21 PM CDT Height 180.3 cm (5' 11) 12/08/2020 12:21 PM CDT Body Mass Index 23.85 12/08/2020 12:21 PM CDT Plan of Treatment Health Maintenance Due Date Last Done Comments Hepatitis C screening for age 18-79 1975 Pneumococcal series for age 50+ (1 of 1 - PCV) 2007 Zoster (shingles) series for age 50+ (1 of 2) 2007 Lipids for age 45-75 03/07/2009 03/07/2004 Tetanus booster 05/08/2020 05/08/2010 BMI (ht and wt on same day) for age 18+ 12/08/2021 12/08/2020 Depression screening for age 12+ 12/08/2021 12/08/2020 COVID-19 vaccine series ( season) 2024 10/13/2020, 09/15/2020 Influenza Vaccine (#1) 2025 , 04/21/2019, 04/29/2018, Additional history exists Colonoscopy through age 75 12/14/203112/13, 10/27/2020, 09/14/2019 RSV vaccine for adults or (1 - 1-dose 75+ series) 01/08/2032 Hepatitis B series for 19+ Aged Out N o longer eligible based on patient's age to complete this topic Medical Devices Implanted Type Area Oil Distributor Tender Device Identifier Shelf Expiration Date Model / Serial / Lot Sys Hernia Lg Ultrapro - [id number] Implanted:Qty: 1 on 05/11/[address] [facility] Left: Inguinal [employer] (SUTURE) 12/29/2011 [facility]# / / [id number] Procedures Procedure Name Priority Date/Time Associated Diagnosis Comments SCAN-COLONOSCOPY 12/13/2021 1:00 PM CDT LIPID PANEL Timed 03/07/2004 8:10 AM CDT from Last 3 Months or Most Recently Relevant to Health Maintenance Results * SCAN-COLONOSCOPY (12/13/2021 1:00 PM CDT) Narrative Procedure Note Betsey Handy MD - 12/13/2021 12:17 PM CDT [facility] [address] [place] [address], [address], [place] [address] Patient Name: Apollo Quinones Gender: Male Exam Date: 12/13/2021 Visit Number: [id number] Age: 66 Years Date of : 1955 Attending MD: Betsey Handy MD Medical Record#: [id number] Procedure: Colonoscopy Indications: Ulcerative colitis Referring MD: Referral Self Primary MD: Alin Chaparro MD Medications: Intra Procedure Medications: Patient received monitored anesthesia care. Complications: No immediate complications Procedure: An examination of the heart and lungs was performed and found to be withinacceptable limits. . The patient was therefore deemed a reasonablecandidate for endoscopy and sedation. The risks and benefits of the procedure were explained to the patient.After obtaining informed consent, the patient received monitoredanesthesia care and I passed the scope without difficulty via the rectum to the ileum. The appendiceal orificeand ic valve were identified. The scope was retroflexed during theexamination The quality of the prep was good (Miralax/Gatorade/2 tabletsBisacodyl/Magnesium Citrate). This was a complete examination throughout the entire colon. Findings: Polyp location: transverse colon. Quantity: 1. Size: 2 mm. Polyp shape:flat lesion. Maneuver: polypectomy was performed with a cold snare. Removal: complete. Retrieval: complete. Bleeding: none. Diverticulosis. Location: - sigmoid. Description: mild. Size:medium. Quantity: few. No inflammation present. Anal canal: small internal hemorrhoid(s) Remainder of the exam is normal. Comments: About 5 cm of the TI was visualized and it was normal. Impression: Ulcerative (chronic) pancolitis without complicationsEndoscopic Fernández Score= 0; Normal or inactive disease Preliminary Plan: The patient and their physician will receive a copy of the pathologyreport as well as pathology-based recommendations for future screening orsurveillance. Recommendation Comments: 1-2 years return for colonoscopy pending onbiopsy results. Pathology Results: A: COLON, CECUM/ASCENDING, BIOPSY: 1. Normal colonic mucosa 2. Negative for microscopic, active, and chronic colitis 3. Negative for dysplasia B: COLON, TRANSVERSE, BIOPSY: 1. Normal colonic mucosa 2. Negative for microscopic, active, and chronic colitis 3. Negative for dysplasia C: COLON, DESCENDING, BIOPSY: 1. Normal colonic mucosa 2. Negative for microscopic, active, and chronic colitis 3. Negative for dysplasia D: COLON, SIGMOID, BIOPSY: 1. Changes consistent with quiescent ulcerative colitis 2. Negative for dysplasia E: RECTUM, BIOPSY: 1. Changes consistent with quiescent ulcerative colitis 2. Negative for dysplasia 3. Hyperplastic polyps are also present F: COLON, TRANSVERSE, POLYP: 1. Hyperplastic polyp MICROSCOPIC A: Performed B: Performed C: Performed D: Performed E: Performed F: Performed Electronically signed by: Sanjana [place] [address] Final Plan: Repeat colonoscopy in 2 years. We will attempt to contact you at appropriate intervals via U.S. mail. Wemay not be able to find you or contact you at that time, therefore youshould know that the responsibility for following our recommendation restswith you. If you don't hear from us at the time your procedure is due,please contact our office to schedule an appointment. If your contactinformation should change, please contact our office so that we can updateyour record. Additional Comments: The biopsies of your colon look great. We can do repeat colonoscopy in 2years! Always a pleasure to see you. _Electronically signed by: Betsey Handy MD 12/13/2021 cc: Alin Chaparro MD us Betsey Handy MD OTHER Final Res ult * (ABNORMAL) LIPID PANEL (03/07/2004 8:10 AM CDT) CHOLESTEROL,TOTAL 168 110 - 199 mg/dL [facility] TRIGLYCERIDES 77 40 - 149 mg/dL [facility] HDL CHOLESTEROL 40(L) 41 - 75 mg/dL [facility] CHOL/HDL RATIO 4.[address] [facility] LDL CHOLESTEROL 113 60 - 130 mg/dL [facility] 03/07/2004 8:10 AM CDT 03/07/2004 2:01 AM CDT us Lb Frias MD CHEMISTRY Final Re sult [facility] SENDOUT [facility] [address] [address] [place] [address] from Last 3 Months or Most Recently Relevant to Health Maintenance Insurance [facility] Care Teams Warehouse Freight Handler Relationship Specialty Start Date End Date Monika Trevino PA PCP - General Physician Roof Tile Layer 12/06/20
--- OUTSIDE RECORDS SUMMARY | 2024-12-31 11:23 | XMS_ITS | Encounter Summary ---
Author Organization [place] Address [facility] [place] [address] Care Team Providers Care Ironing Machine Operator Name Role Phone [facility], [facility] Primary Care Provider + Dave Ortiz MD Unavailable [phone] Encounter Details Date Type Department Care Team (Late st Contact Info) Description 09/29/[address] 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 Gender Identity Not on file Sexual Orientation Not on file documented as of this encounter Plan of Treatment Upcoming Encounters Date Type Department Care Team (Late st Contact Info) Description 01/26/2025 1:00 PM CDT Office Visit [facility] [place] [address] [place], [place] [address] [place] [phone] Dave Ortiz MD [address] [place] [address] [place] [address] Nurse, Vein 01/28/2025 9:30 AM CDT Ancillary Procedure [facility] [place] [address] [place] [phone] 01/28/2025 10:00 AM CDT Allied Health/Nurse Visit [facility] [place] [address] [facility] [place] [phone] Nurse, Vein documented as of this encounter Visit Diagnoses Not on filedocumented in this encounter Care Teams Ironing Machine Operator Relationship Specialty Start Date End Date [facility], [facility] [address] [address] [phone] PCP - General 05/22/24 Dave Ortiz MD [address] [facility] [address] [place] [address] Assigned Heart and Vascular Surgical Provider 09/19/24 documented as of this encounter
--- OUTSIDE RECORDS SUMMARY | 2024-12-31 11:23 | XMS_ITS | Encounter Summary ---
Author Organization [facility] Address [address] [place] [address]. [place] [address] Care Team Providers Care Make Up Artist Name Role Phone Clinic, [facility] Primary Care Provider + Dave Ortiz MD Unavailable Encounter Details Date Type Department Care Team (Latest Contact Info) Description 12/07/2024 Travel Social History Tobacco Use Types Packs/Day [...] in an abandoned building, in an overnight fdc, or couch-surfing.) Yes 08/03/2024 Are you worried [...] on file Legal Sex Male 3:38 AM [employer] Gender Identity Not on file Sexual Orientation Not on file documented as of this encounter Plan of Treatment Upcoming Encounters Date Type Department Care Team (Late st Contact Info) Description 01/26/2025 1:00 PM CDT Office Visit [facility] Vein [place] [address] [place] [address] [place] [phone] Dave Ortiz MD [address] [place] [address] Nurse, Vein 01/28/2025 9:30 AM CDT Ancillary Procedure [facility] [address] [place] [phone] 01/28/2025 10:00 AM CDT Allied Health/Nurse Visit [facility] [place] [address] [place] [address] [place] [phone] Nurse, Vein documented as of this encounter Visit Diagnoses Not on filedocumented in this encounter Care Teams Make Up Artist Relationship Specialty Start Date End Date [facility], [facility] [address] [place] [address] PCP - General 05/22/24 Dave Ortiz MD [address] [place] [address] Assigned Heart and Vascular Surgical Provider 09/19/24 documented as of this encounter
--- OUTSIDE RECORDS SUMMARY | 2024-12-31 11:23 | XMS_ITS | Data Portability ---
Author Organization [facility], [facility] Address [address] [place] [address] Care Team Providers Care Machine Marker Name Role Phone PRAMOD MORRISSEY Primary Care Provider Assessment Encounter Date Assessment [...] Details Last Modified Time Details Appointments None recorded. Lab biopsy, prostate [address] [facility], [address] [facility], [place], [address], 2 11:22:10 PSA, total, serum or plasma 2020 [facility], [address] [facility], [place], [address], 15:33:38 Referral None recorded. Procedures None recorded. Surgeries None recorded. Imaging MRI, prostate, w/wo contrast - Please contact patient to schedule 2020 [place] [facility] [place], [address], [place], [address], 1 21:24:16 Medication Orders gentamicin 40 mg/mL injection solution 2021 022 [email or web address] [id number], [address], [place], [address], 5 11:50:38 levofloxaci n 500 mg tablet 2020 021 [id number], [address], [place], [address], 14:05:23 Patient TargetsNo targets recorded. Patient InstructionsNo instructions recorded. Reason for Referral None Reported. Results Created Date Observation Date Name Description Value Unit Range Abnormal Flag Note LastModifiedBy Organization Detail LastModifiedTime 05/29/20 21 05/29/2021 PSA, TOTAL PSA, total 9.89 NG/mL 0.00-4 .00 high Not Available [facility] [address], [place], [address], 05/29/2021 15:33:38 06/12/20 21 06/12/2021 MRI, prost ate, w/wo contr ast No observ ation record ed. [email or web address] [facility] [address], [place], [address], 07/01/2021 23:47:42 06/19/20 21 06/12/2021 MRI, prost ate, w/wo contr ast No observ ation record ed. [email or web address] Not Available 2020 14:36:59 07/25/19 22 07/09/2021 US, prost ate No observ ation record ed. [email or web address] Not Available 2021 12:35:08 12/23/19 25 12/21/2024 MRI, prost ate, w/wo [...] previo usly seen lesion in the left manager forms olater al periph eral zone at the [...] reted by: DR. BAILEY ALFARO M.D. [email or web address] [facility] [address] [facility] [address], [place], [address], 12/23/2024 08:42:20 Result Notes Documentation Provider Name and Address Organization Details Recorded Time Mri, Prostate, W/wo Contrast : EXAM: MR PELVIS PROSTATE wwo CONTRAST LOCATION: [facility] [place] DATE: 12/21/2024 INDICATION: Elevated prostate specific antigen [PSA]. Prior benign prostate biopsy in 2021. COMPARISON: 06/12/2021 PSA: No recent PSA levels available at the time of MRI interpretation. TECHNIQUE: Examination was performed with high-resolution T1 axial, T2 axial, T2 FSE sagittal and T2 FSE coronal images obtained through the prostate gland and seminal vesicles. Diffusion images were obtained in the axial plane. Contrast was injected with dynamic enhanced images of the prostate gland in the axial plane. Images were analyzed using a separate workstation with CAD and 3D post processing for prostate volume contouring and segmentation. CONTRAST: 7.5 ml Gadavist Discarded: 0 ml Gadavist FINDINGS: The image quality is satisfactory. PROSTATE: Volume 57 mL. PERIPHERAL ZONE: Mild wedge shaped T2 and ADC hypointensities, likely sequelae of prostatitis (PI-RADS 2). No suspicious lesions. The previously seen lesion in the left posterolateral peripheral zone at the mid gland/gland apex is less apparent today. TRANSITIONAL ZONE: Nodularity consistent with benign prostatic hyperplasia (PI-RADS 2). No suspicious lesions. LOCAL STAGING: Seminal Vesicles: Unremarkable. Extracapsular Extension: Not applicable. Neurovascular Bundle Invasion: Not applicable. Other Organ Invasion: Not applicable. BLADDER: Unremarkable. LYMPH NODES: No pelvic or retroperitoneal lymphadenopathy. BONES: No aggressive osseous lesions. Degenerative changes at L5-S1. IMPRESSION: 1. No suspicious lesions in the prostate gland. OVERALL ASSESSMENT: PI-RADS 2-Low (clinically significant cancer is unlikely to be present). 2. Changes of BPH with prostate volume of 57 mL. This report was electronically interpreted by: [facility] 12/23/2024 08:42:20 Problems Name Problem SNOMED Code Status Onset Date Resolution Date Notes Provider Name and Address Organization Details Recorded Time Prostate specific antigen above reference range 267981086 Active 025 LUMA JESSICA MD [address] [facility] [address] [place] [address], [phone] , [facility] 08:50:35 Problem Notes None recorded. Procedures Surgical History Date Name Laterality Status Provider Name and Address Organization Details Recorded Time 08/04/19 25 cholecystectomy completed Senia Boone [facility] 12/06/2024 11:52:36 07/09/19 22 Prostate Biopsy Procedure completed Caitlyn Romero MD [address] [facility],[address], [place], [address], [facility] 07/09/2021 12:15:54 07/09/19 22 URONAV completed Sheldon Caldwell [facility] 07/09/2021 10:54:30 07/09/19 22 Gentamicin Injection completed Karlie Reinoso [facility] 07/09/2021 10:49:06 05/29/20 21 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/PSA RESULTS completed Shayna Terry [facility] 05/29/2021 14:08:40 10/28/19 21 Diagnostic colonoscopy [...] t Available Vitals Date Recorded Body height Provider Name an d Address Organization Details Last Updated DateTime 07/09/2021 180.34 cm Sheldon Caldwell [facility] 10:54:34 Date Recorded Body height Heart rate Systolic And Diastolic Provider Name and Address Organization Details Last Updated DateTime 07/09/2021 180.34 cm 75 /min 134/86 mm[Hg] Karlie Reinoso [facility] 07/09/2021 10:55:00 Date Recorded Body height Body mass index (BMI) Body weight Provider Name and Address Organization Details Last Updated DateTime 12/06/2024 180.34 cm 23.7 kg/m2 22757.7 g Senia Boone [facility] 12/06/2024 11:50:24 Date Recorded Body weight Body height Body mass index (BMI) Provider Name and Address Organization Details Last Updated DateTime 05/29/2021 78685.90651 29531 g 180.34 cm 23 kg/m2 Not Available Health Note 05/29/2021 13:36:19 Social History Question Answer Notes LastModified by Organizat ion Details LastModified Time Tobacco Smoking Status Never Smoker Not Available Health Note 05/27/2021 14:22:53 Do You Have An Advance Directive? No [email or web address] Information not available 12/06/2024 What Is Your Level Of Caffeine Consumption? Moderate [email or web address] Information not available 05/27/2021 How Much Tobacco Do You Chew? None [email or web address] Information not available 05/27/2021 Recreational Drug Use No [email or web address] Information not available 05/27/2021 Do You Have A Medical Power Of Train Reservation Clerk? No [email or web address] Information not available 12/06/2024 What Was The Date Of Your Most Recent Tobacco Screening? 12/06/2024 [email or web address] Information not available 12/06/2024 What Is Your Relationship Status? [email or web address] Information not available 05/27/2021 Has Tobacco Cessation Counseling Been Provided? No [email or web address] Information not available 12/06/2024 Sex: Male Functional Status Question Answer Note LastModified by Organizat ion Details LastModified Time Do you use any illicit or recreational drugs? No Information not available 12/06/2024 Do you or have you ever used any other forms of tobacco or nicotine? No [email or web address] Information not available 12/06/2024 What is your [...] High Blood Pressure N Kidney Stones N Lung Disease N Depression N GERD/Acid Reflux Y Sexually Transmitted Infection [...] SNOMED-CT Code Diagnosis ICD10 Code Diagnosis Note [id number] MD Jone Wilcox [facility] [address] [place] [address],[address] [place] [phone] 05/29/2021 13:36:12 05/29/2021 14:09:15 Prostate specific antigen above reference range [id number] R97.20 will recheck psa. sudden rise from 2 to 10 -- more suspicous for inflammati onDRE - normalchec k MRI [id number] MD Jone Wilcox [address],[facility] e [address] [place] [phone] 07/09/2021 10:39:38 07/09/2021 12:22:37 Prostate specific antigen above reference range [id number] R97.20 will recheck psa. sudden rise from 2 to 10 -- more suspicous for inflammati onDRE - normalchec k MRI [id number] MD Jone Wilcox [address],[facility] e [address] [place] [phone] 07/09/2021 10:42:39 07/11/2021 11:41:50 Prostate specific antigen above reference range [id number] R97.20 will recheck psa. sudden rise from 2 to 10 -- more suspicous for inflammati onDRE - normalchec k MRI------- --------- 07/09/21 - uronav done w/o complicati ons.1 pi-rads 3 lesionwill call w results. [id number] LUMA JESSICA MD [facility] [address] [place] [phone] 12/06/2024 11:46:50 12/15/2024 08:40:26 Prostate specific antigen above reference range [id number] R97.20 Plan:1. MRI prostate2. Return to review results3. At minimum, six-month PSA recheck with Urology Health Concerns Section Related Observation LastModified by Organization Detai ls LastModified Time None Recorded Concern Status LastModified by Organization Details LastModified Time None Recorded Advance Directives Directive N: Payers Insurance Date Sequence Insurance Name Policy Number Policy Krishnamurthy Covered Member ID Krishnamurthy Member ID Guarantor Name 12/15/2024 1 [place] (MEDICARE [place]AC[place] PPO) [id number] Paulo Quinones [id number] Paulo Quinones 12/06/2024 1 [facility] [id number] Hilda Quinones [id number] Paulo Quinones Notes Date Note Type Note Provider Name and Address Organization Details Recorded Time 05/29/2021 text/html Chief complaint:Elevated Prostate Level (PSA) Elevated PSA:Diagnosed:1 Months ago patient went from 2 range to 10.9dad recently diagnosed w prostate cancer Shayna Terry [facility] 05/29/2021 14:08:59 07/09/2021 text/html patient here tod for uronav biopsy. Caitlyn Romero MD [address] [place] [address],[address], [place], [phone], [facility] 07/09/2021 12:16:08 12/06/2024 text/html Patient is a santo y [...] obstructive irritative voiding symptoms. LUMA JESSICA MD [address] [place] [address],[address], [place], [phone], [facility] 12/14/2024 08:50:50
[2024-12-31 11:28] VITALS: BP 136/87; PULSE 76; RESP 18; TEMP 36.4; O2SAT 96; BMI 24.4
--- NOTE | 2024-12-31 11:42 | CRLHL7_ITS ---
For Patients: As a result of the Century Cures Act, medical imaging exams and procedure reports are released immediately into your electronic medical record. You may view this report before your referring provider. If you have questions, please contact your health care provider. INDICATION: Diarrhea HX ulcerative colitis. TECHNIQUE: CT abdomen and pelvis acquired with 85 cc Isovue 370 IV contrast. COMPARISON: None. FINDINGS: Lower chest: Unremarkable. Liver: Unremarkable. Normal in size and attenuation. No suspicious masses. Gallbladder and bile ducts: Cholecystectomy. No biliary ductal dilatation. Pancreas: Unremarkable. No mass or inflammation. Spleen: Unremarkable. Normal in size. No masses. Adrenal glands: Unremarkable. No nodules. Kidneys: Unremarkable. No suspicious masses, stones, or hydronephrosis. GI tract: Numerous fluid-filled small bowel loops with associated wall thickening and mild scattered interloop edema. No evidence of a mechanical obstruction. Focal short-segment small bowel intussusception in the left hemiabdomen (2/60). Mild colonic diverticulosis. The appendix is not discretely visualized. Vasculature: Abdominal aorta is normal in caliber. Mesenteric arteries are patent. Lymph nodes: No lymphadenopathy. Peritoneum/Abdominal Wall: Unremarkable. No sign of mass or infiltration. No free air. Small volume free-fluid, likely reactive secondary to the small-bowel inflammation. Pelvis: Prostatomegaly. Bones: Multilevel degenerative changes in the lower lumbar spine. Gyut-hq-diyiwbrp thoracolumbar dextrocurvature. IMPRESSION: 1. Findings compatible with enteritis, which may be inflammatory or infectious in etiology. 2. Focal short-segment small bowel intussusception in the left hemiabdomen, which is typically a transient finding in adults. Please note that all CT scans at this facility use dose modulation, iterative reconstruction, and/or weight-based dosing when appropriate to reduce radiation dose to as low as reasonably achievable. Dictated by Jose Lora MD @ 12/31/2024 1:26:11 PM (Electronically Signed)
--- NOTE | 2024-12-31 11:44 | ED.GENADULT ---
HPI - General Adult General Date Seen: 12/31/24 Chief complaint: Diarrhea Stated complaint: Diarrhea Time Seen by Provider: 12/31/24 11:21 History of Present Illness HPI narrative: Patient is a 69-year-old here for evaluation of diarrhea which has been ongoing for about a week. He says symptoms started about 3 days after getting an MRI with contrast for evaluation of his prostate. He does have a longstanding history of ulcerative colitis which has been well controlled on medication. He has a history of diverticulosis but does not recall any specific episodes of diverticulitis. He is status post cholecystectomy in July this year but has not had problems since then. He notes watery diarrhea which he says started a week ago, seemed to improve over the course of about 5 days, but recurred today. He has had 5 or 6 episodes of watery diarrhea Ramonita today. He has not had any bloody stools. He has not had any focal or significant abdominal pain. Has had some nausea but no vomiting. No fevers. No travel or exposure to illness. His is not sick. No recent antibiotics. Related Data Home Medications ?Medication ?Instructions ?Recorded ?Confirmed mesalamine 1.2 gram tablet,delayed 4.8 g PO DAILY 07/12/24 12/31/24 release omeprazole 20 mg capsule,delayed 20 mg PO DAILY 08/12/24 12/31/24 release Previous Rx's ?Medication ?Instructions ?Recorded rosuvastatin 5 mg tablet 5 mg PO QDAY #90 tabs 08/27/24 tadalafil 5 mg tablet (Cialis) 5 mg PO QDAY #90 tabs 08/27/24 Allergies Allergy/AdvReac Type Severity Reaction Status Date / Time No Known Drug Allergies Allergy Verified 12/31/24 12:44 Review of Systems Status of ROS: Reports: 10 or more systems reviewed and unremarkable except as noted in History and below [facility] Medical History Duodenal ulcer ?K26.9 - Duodenal ulcer, unspecified as acute or chronic, without hemorrhage or perforation (ICD-10) 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 - Carcinoma in situ, unspecified (ICD-10) Melanoma in situ of face ?D03.30 - Melanoma in situ of unspecified part of face (ICD-10) Ulcerative colitis ?K51.90 - Ulcerative colitis, unspecified, without complications (ICD-10) History of seasonal allergies ?Z88.9 - Allergy status to unspecified drugs, medicaments and biological substances (ICD-10) History of neuropathy ?Z86.69 - Personal history of other diseases of the nervous system and sense organs (ICD-10) History of elevated prostate specific antigen (PSA) ?Z87.898 - Personal history of other specified conditions (ICD-10) History of colonic polyps ?Z86.010 - Personal history of colonic polyps (ICD-10) Surgical History Hx laparoscopic cholecystectomy ?Z90.49 - Acquired absence of other specified parts of digestive tract (ICD-10) History of tonsillectomy ?Z90.89 - Acquired absence of other organs (ICD-10) History of inguinal hernia repair ?Z98.890 - Other specified postprocedural states (ICD-10) ?Z87.19 - Personal history of other diseases of the digestive system (ICD-10) History of endoscopy ?Z98.890 - Other specified postprocedural states (ICD-10) Family History Other Colon cancer Social History What is your current living situation?: I presently have a place to live Problems where you live: no known problems In the past 12 months, utilities in danger of being shut off: no In past 12 months, lack of transportation kept you from medical appts, meetings, work, or getting things needed for daily living: no In the past 12 mos, have been you worried that your food would run out before you had money to buy more?: never true In the past 12 mos, the food you bought just didn't last and you didn't have money to buy more?: never true Smoking Status: Never smoker How often does anyone, including family, friends and others, physically hurt you: never How often does anyone, including family, friends and others, insult or talk down to you: never How often does anyone, including family, friends and others, threaten you with harm: never How often does anyone, including family, friends and others, scream or curse at you: never Exam Narrative: Exam Narrative: Vital signs reviewed In general, alert, nontoxic Head: Normocephalic, atraumatic. Eyes: Sclera clear. Pupils equal and reactive. ENT: Mucous membranes moist. Neck: Supple without adenopathy. Heart: Regular rate and rhythm without murmur. Lungs: Clear. No increased work of breathing, crackles or wheezes. Abdomen: Soft, nontender to palpation. Extremities: Well perfused, pulses intact. No significant edema. Neurologic: Alert, conversant. Speech fluent, face symmetric. Moves all extremities equally. Skin: Warm, dry well perfused. Affect: Normal. Const: Vital Signs, click to edit/add: Vital Signs - 24 hr 12/31/24 11:28 Temperature 97.6 F Pulse Rate [Pulse Oximeter] 76 Respiratory Rate 18 Blood Pressure [Ri ght Upper Arm] 136/87 Pulse Oximetry 96 Oxygen Delivery Me thod Room Air Course Course ED Course: Diagnostic considerations would include viral or bacterial causes of diarrhea, exacerbation of underlying ulcerative colitis, diverticulitis or other colitis, vital signs are unremarkable, abdominal exam is benign. I think the likelihood of surgical pathology such as ischemic colitis, bowel obstruction etcetera is low. I do think it is worthwhile to give him some fluids and given his age and underlying medical history do a CT scan. Routine labs ordered and pending. Patient did not have any diarrhea while here. Has not had any vomiting, feels well. Labs reviewed and very reassuring. CRP is less than 0.5. I reviewed his CT scan, he has lots of fluid-filled loops of bowel, I do not see any free air or significant inflammatory changes, I did note an area in the left abdomen where the small bowel seem to enhance more, radiology notes that this is a focal short segment small bowel intussusception that is typically transient in adults. Given that the patient does not have any symptoms of significant abdominal pain or bloody stools etcetera I do not think this is of clinical significance. He actually has an appointment with his egg sorter in a few days, on Friday. He would like to try a course of prednisone to see if that is helpful as historically when his ulcerative colitis has flared in the past that has been helpful. I certainly think it is reasonable to give that a try as discussed with him I cannot really determine whether not this is inflammatory or infectious at this time. Given that he did not have a stool here were not able to do any testing in terms of stool cultures or C diff. This could be done as an outpatient if symptoms continue. Reviewed reasons to return such as severe abdominal pain, fevers, bloody stools or other worsening. Prednisone taper prescribed 3 Instymeds. Vital Signs Vital signs: Initial Vital Signs Temperature 97.6 F 12/31/24 11:28 Temperature Source Temporal Artery Scan 12/31/24 11:28 Pulse Rate 76 12/31/24 11:28 Respiratory Rate 18 12/31/24 11:28 Blood Pressure 136/87 12/31/24 11:28 Blood Pressure Mean 103 12/31/24 11:28 Pulse Oximetry 96 12/31/24 11:28 Oxygen Delivery Method Room Air 12/31/24 11:28 Vital Signs Temperature 97.6 F 12/31/24 11:28 Pulse Rate 76 12/31/24 11:28 Respiratory Rate 18 12/31/24 11:28 Blood Pressure 136/87 12/31/24 11:28 Pulse Oximetry 96 12/31/24 11:28 Oxygen Delivery Method Room Air 12/31/24 11:28 Temperature 97.6 F 12/31/24 11:28 Pulse Rate 76 12/31/24 11:28 Respiratory Rate 18 12/31/24 11:28 Blood Pressure 136/87 12/31/24 11:28 Pulse Oximetry 96 12/31/24 11:28 Oxygen Delivery Method Room Air 12/31/24 11:28 Medications Administered Medications: Discontinued Medications Generic Name Dose Route Start Last Admin Trade Name Freq PRN Reason Stop Dose Admin Sodium Chloride 1,000 mls @ 1,000 mls/hr 12/31/24 11:45 12/31/24 13:25 0.9 % Sodium Chloride 1000 Ml IV 12/31/24 12:44 Infused .Q1H SERGEY Infusion Medical Decision Making Lab Data Lab results reviewed: Yes I reviewed the patient's lab results Labs: Lab Results 12/31/24 Range/Units 11:55 WBC 6.42 (4.50-11.00) K/uL RBC 4.68 (4.30-5.90) m/uL Hgb 14.3 (13.5-17.5) gm/dL Hct 43.5 (37.0-53.0) % MCV 93 (80-100) fL MCH 31 (26-34) pg MCHC 33 (32-36) gm/dL RDW Coeff of Cailin 12.7 (11.5-15.5) % Plt Count 180 (140-440) K/uL Neut % (Auto) 68.1 (42.0-72.0) % Lymph % (Auto) 19.9 L (20-44) % [place] % (Auto) 7.2 (0.0-11.0) % Eos % (Auto) 3.9 (0.0-7.0) % Baso % (Auto) 0.9 (0.0-3.0) % Neut # (Auto) 4.37 (1.7-7.0) K/uL Lymph # (Auto) 1.30 (0.90-2.90) K/uL [place] # (Auto) 0.50 (0.00-0.90) K/UL Eos # (Auto) 0.25 (0.00-0.50) K/uL Baso # (Auto) 0.06 (0.00-0.30) K/uL Abs Immat Gran (auto) 0.00 (0.00-0.30) K/uL Imm/Tot Granulo (auto) 0.0 % Sodium 139 (135-149) mmol/L Potassium 4.4 (3.6-5.1) mmol/L Chloride 99 (96-114) mmol/L Carbon Dioxide 33 H (20-32) mmol/L Anion Gap 7 (7-15) mEq/L BUN 16 (7-30) mg/dL Creatinine 1.0 (0.5-1.5) mg/dL Estimated Creat Clear 76.35 Estimated GFR 82 ml/min Glucose 97 (60-115) mg/dL Calcium 10.1 (8.4-10.6) mg/dL Magnesium 1.9 (1.5-2.6) mg/dL C-Reactive Protein < 0.5 L (0.5-1.0) mg/dL Imaging Data CT scan - abdomen: Attestation: I have reviewed the pertinent imaging results. Radiologist's impression: Patient: PADMA COX Facility: [facility] Site . Site : 1955 Study: CT-Abdomen/Pelvis with IV-12/31/2024 12:44:09 PM Ordering Physician: Na Porras Final Report: INDICATION: Diarrhea HX ulcerative colitis. TECHNIQUE: CT abdomen and pelvis acquired with 85 cc Isovue 370 IV contrast. COMPARISON: None. FINDINGS: Lower chest: Unremarkable. Liver: Unremarkable. Normal in size and attenuation. No suspicious masses. Gallbladder and bile ducts: Cholecystectomy. No biliary ductal dilatation. Pancreas: Unremarkable. No mass or inflammation. Spleen: Unremarkable. Normal in size. No masses. Adrenal glands: Unremarkable. No nodules. Kidneys: Unremarkable. No suspicious masses, stones, or hydronephrosis. GI tract: Numerous fluid-filled small bowel loops with associated wall thickening and mild scattered interloop edema. No evidence of a mechanical obstruction. Focal short-segment small bowel intussusception in the left hemiabdomen (2/60). Mild colonic diverticulosis. The appendix is not discretely visualized. Vasculature: Abdominal aorta is normal in caliber. Mesenteric arteries are patent. Lymph nodes: No lymphadenopathy. Peritoneum/Abdominal Wall: Unremarkable. No sign of mass or infiltration. No free air. Small volume free-fluid, likely reactive secondary to the small-bowel inflammation. Pelvis: Prostatomegaly. Bones: Multilevel degenerative changes in the lower lumbar spine. [id number] thoracolumbar dextrocurvature. IMPRESSION: 1. Findings compatible with enteritis, which may be inflammatory or infectious in etiology. 2. Focal short-segment small bowel intussusception in the left hemiabdomen, which is typically a transient finding in adults. Please note that all CT scans at this facility use dose modulation, iterative reconstruction, and/or weight-based dosing when appropriate to reduce radiation dose to as low as reasonably achievable Discharge Plan Discharge Clinical Impression: Diarrhea Patient Disposition: Home, Self-Care Condition: Stable Instructions: Acute Diarrhea (ED) Additional Instructions: Prednisone taper as prescribed. Follow-up with your egg sorter next week as planned. For worsening or severe symptoms such as severe abdominal pain, fevers, bloody stools, return to the ER at any time. Prednisone taper: 3 tablets daily for 3 days, then 2 tablets daily for 3 days, then 1 tablet daily for 3 days. Prescriptions: No Action mesalamine 1.2 gram tablet,delayed release (DR/EC) 4.8 g PO DAILY omeprazole 20 mg capsule,delayed release(DR/EC) 20 mg PO DAILY rosuvastatin 5 mg tablet 5 mg PO QDAY Qty: 90 3RF tadalafil [Cialis] 5 mg tablet 5 mg PO QDAY Qty: 90 3RF Follow Up/Referrals: Alin Chaparro MD [Primary Care Provider, Family Practice] Stand Alone Forms: [employer] Info Instructions
[2024-12-31 12:16] LABS: Chloride* 99 mmol/L (96-114)
[2024-12-31 12:17] LABS: Potassium* 4.4 mmol/L (3.6-5.1); Sodium* 139 mmol/L (135-149)
[2024-12-31 12:19] LABS: Blood Urea Nitrogen* 16 mg/dL (7-30); Creatinine* 1.0 mg/dL (0.5-1.5); Est. Creatinine Clearance* 76.35; Estimated Glomerular Filt Rate 82 ml/min
[2024-12-31 12:20] LABS: Anion Gap 7 mEq/L (7-15); Calcium* 10.1 mg/dL (8.4-10.6); Carbon Dioxide* 33 mmol/L (20-32); Glucose* 97 mg/dL (60-115)
[2024-12-31 12:25] LABS: Hematocrit 43.5 % (37.0-53.0); Hemoglobin* 14.3 gm/dL (13.5-17.5); Immature Granulocytes Abs Auto 0.00 K/uL (0.00-0.30); Immature Granulocytes Pct Auto 0.0 %; Mean Corpuscular HGB Conc 33 gm/dL (32-36); Mean Corpuscular Hemoglobin 31 pg (26-34); Mean Corpuscular Volume 93 fL (80-100); RDW Coefficient of Variation % 12.7 % (11.5-15.5); Red Blood Count 4.68 m/uL (4.30-5.90); White Blood Count* 6.42 K/uL (4.50-11.00)
[2024-12-31 12:27] LABS: Lymphocytes Absolute Auto 1.30 K/uL (0.90-2.90)
[2024-12-31 12:28] LABS: Slide Review Reflex No
--- NOTE | 2024-12-31 14:50 | ED.NURSE ---
pt. called in after discharge wondering about prednisone taper. pt. was informed of taper that was listed on discharge instructions. pt repeated instructions back to instructional writer and stated understanding on phone.
== END 2024-12-31 14:11 | disposition home or self-care (01) ==
PROVIDERS: Emergency Provider Emergency Medicine; PCP Family Medicine
DX: R19.7 Diarrhea, unspecified (principal)
CPT/HCPCS: 36415; 74177; 80048; 83735; 85025; 86140; 87493; 99284; 99285; J7030; Q9967